=== PATIENT | female | born 1945 | race Caucasian/White ===

== ENCOUNTER 2021-10-25 17:48 | Inpatient (IN) | payer MEDICAID, MEDICARE, OTHER ==
[~2021-10-25] VITALS: Ht 154.9 cm; Wt 99.8 kg
[2021-10-25 19:21] LABS: Basophils # (auto) 0 10 ^3/uL (0-0.2); Basophils % (auto) 0.5 % (0.0-2.0); Eosinophils # (auto) 0.1 10 ^3/uL (0-0.8); Eosinophils % (auto) 1.8 % (0.0-7.0); Hematocrit 40.9 % (36.0-46.0); Hemoglobin 13.9 g/dL (12.2-16.2); Lymphocytes # (auto) 1.5 10 ^3/uL (0.4-5.4); Lymphocytes % (auto) 20.7 % (10.0-50.0); Mean Corpuscular Hemoglobin 28.6 pg (28.0-32.0); Mean Corpuscular Hgb Conc. 33.9 g/dL (32.0-36.0); Mean Corpuscular Volume 84.2 fL (80.0-100.0); Monocytes # (auto) 0.5 10 ^3/uL (0-1.3); Monocytes % (auto) 6.3 % (0.0-12.0); Neutrophils # (auto) 5.1 10 ^3/uL (1.6-8.6); Neutrophils % (auto) 70.7 % (37.0-80.0); Nucleated Red Blood Cells % 0.1 %; Red Blood Cells 4.85 10^6/uL (4.0-5.20); Red Cell Distribution Width 13.4 % (11.8-14.3); White Blood Cell 7.2 10^3/uL (4.4-10.8)
[2021-10-25 19:30] LABS: Albumin 3.6 g/dL (3.4-5.0); Calcium 9.5 mg/dL (8.5-10.1); Potassium 3.6 mmol/L (3.5-5.1)
[2021-10-25 19:35] LABS: Bilirubin, Total 0.7 mg/dL (0.2-1.0); Total Protein 7.3 g/dL (6.4-8.2)
[2021-10-25 19:42] LABS: Urine Bacteria FEW /hpf (None Seen); Urine Blood Negative /uL (Negative); Urine Mucus FEW (None Seen); Urine Specific Gravity 1.008 (1.001-1.035); Urine WBC 20 /hpf (0 - 5)
[2021-10-25] MEDS ORDERED: ONDANSETRON HCL 4 MG/2 ML VIAL IV ONE (19:45)
[2021-10-25] MEDS ORDERED: KETOROLAC TROMETH 30 MG/ML 1ML VIAL IV ONE (19:45)
[2021-10-25] MEDS ORDERED: SODIUM CHLORIDE 0.9% 1,000 ML IVB ONE (19:45)
[2021-10-25] MEDS ORDERED: levoFLOXacin 500MG 100 ML IV ONE (20:00)
[2021-10-25] MEDS ORDERED: cloNIDine HCL 0.1 MG TAB PO ONE (22:00)
[2021-10-26] MEDS ORDERED: ACETAMINOPHEN 325 MG TAB PO PRN (02:00)
[2021-10-26] MEDS ORDERED: ONDANSETRON HCL 4 MG/2 ML VIAL IV PRN (02:00)
[2021-10-26] MEDS ORDERED: DOCUSATE SOD 100 MG CAP PO PRN (02:00)
[2021-10-26] MEDS ORDERED: DEXTROSE (50%) 50ML SYRG IV PRN (02:00)
[2021-10-26] MEDS ORDERED: HYDROmorphone HCL 2 MG/ML VL IV PRN (02:00)
[2021-10-26] MEDS ORDERED: SODIUM CHLORIDE 0.9% 1,000 ML IV ONE (02:15)
[2021-10-26] MEDS ORDERED: hydrALAZINE HCL 20 MG/ML VL IV PRN (02:45)
[2021-10-26] MEDS: ACCU-CHEK COMFORT CURVE STRIP VI SCH ×2 (06:29→11:24)
[2021-10-26] MEDS: InsuLIN REG 1unit/0.01ml Soln (100units/ml) SC SCH ×2 (06:31→11:30)
[2021-10-26 07:55] LABS: Protein, Urine 7.3 mg/dL (0.0-11.9)
[2021-10-26 10:30] VITALS: BP 147/77
[2021-10-26] MEDS: HYDROcodone-ACET 5/325MG TAB PO PRN ×2 (11:03→12:22)
[2021-10-26 11:38] LABS: Potassium 3.6 mmol/L (3.5-5.1)
[2021-10-26 11:43] LABS: BUN/Creatinine Ratio 19.5; Calcium 9.2 mg/dL (8.5-10.1)
[2021-10-26] MEDS ORDERED: FUROSEMIDE 20 MG TAB PO SCH (12:00)
[2021-10-26] MEDS ORDERED: amLODIPine BESYLATE 5 MG TAB PO SCH (12:00)
[2021-10-26] MEDS ORDERED: LEVO100T8 PO (12:27)
[2021-10-26] MEDS ORDERED: METF-371 PO (12:27)
[2021-10-26] MEDS ORDERED: PARO10TA93 PO (12:27)
[2021-10-26] MEDS ORDERED: PAR20T PO (12:27)
[2021-10-26] MEDS ORDERED: LOSA-69 PO (12:27)
[2021-10-26] MEDS ORDERED: ATOR20TA50 PO (12:27)
[2021-10-26] MEDS ORDERED: TRAM50TA2 PO (12:27)
[2021-10-26 13:00] VITALS: BP 161/86
[2021-10-26 15:00] VITALS: BP 125/65
[2021-10-26] MEDS ORDERED: AML5T PO (16:01)
[2021-10-26] MEDS ORDERED: LEVO500T31 PO (16:01)
[2021-10-26] MEDS ORDERED: levoFLOXacin 250MG 50 ML IV SCH (20:00)
== END 2021-10-26 18:20 | disposition home or self-care (01) | DRG 690 ==
LOC: ER 17:48 → OVERFLOW 10-26 01:57 → CENTRAL 10-26 09:14
PROVIDERS: ADMIT Internal Medicine; ATTEND Internal Medicine
DX: N39.0 Urinary tract infection, site not specified (principal); N17.9 Acute kidney failure, unspecified; I13.0 Hypertensive heart and chronic kidney disease with heart failure and stage 1 through stage 4 chronic kidney disease, or unspecified chronic kidney disease; I16.1 Hypertensive emergency; Z68.41 Body mass index [BMI] 40.0-44.9, adult; I25.10 Atherosclerotic heart disease of native coronary artery without angina pectoris; E03.9 Hypothyroidism, unspecified; E11.22 Type 2 diabetes mellitus with diabetic chronic kidney disease; E66.01 Morbid (severe) obesity due to excess calories; E78.5 Hyperlipidemia, unspecified; I49.3 Ventricular premature depolarization; E11.65 Type 2 diabetes mellitus with hyperglycemia; I50.9 Heart failure, unspecified; N18.31 Chronic kidney disease, stage 3a; Z90.49 Acquired absence of other specified parts of digestive tract; Z88.0 Allergy status to penicillin; Z20.822 Contact with and (suspected) exposure to COVID-19; Z79.84 Long term (current) use of oral hypoglycemic drugs
CPT/HCPCS: 36415; 74176; 80048; 80053; 81001; 82570; 83036; 84156; 84300; 84484; 85025; 93005; 96365; 96375; 99291; G0378; J1815; J1885; J1956; J2405

== ENCOUNTER 2023-03-17 16:44 | Inpatient (IN) | payer OTHER ==
[~2023-03-17] VITALS: Ht 160 cm; Wt 110.8 kg
[~2023-03-17 16:44] MED LIST: AML5T PO; ATOR20TA50 PO; LEVO100T8 PO; LEVO500T31 PO; LOSA50TA46 PO; METF-371 PO; PAR20T PO; PARO10TA93 PO; TRAM50TA2 PO
[2023-03-17 18:11] VITALS: BP 145/97; PULSE 99; RESP 16; TEMP 97.7; O2SAT 98
[2023-03-17] MEDS ORDERED: AMIODARONE 450mg/250ml AE 250 ML IV SCH (18:30)
[2023-03-17 19:00] VITALS: BP 132/90; PULSE 97; RESP 15; O2SAT 98
[2023-03-17] MEDS ORDERED: hydrALAZINE HCL 10 MG TAB PO PRN (19:15)
[2023-03-17] MEDS ORDERED: MORPHINE SULFATE INJ 2 MG/ml SYRG IV PRN (19:15)
[2023-03-17] MEDS ORDERED: ONDANSETRON HCL 4 MG/2 ML VIAL IV PRN (19:15)
[2023-03-17] MEDS ORDERED: NITROGLYCERIN 0.4 MG SL TAB SL PRN (19:15)
[2023-03-17] MEDS ORDERED: DEXTROSE (50%) 50ML SYRG IV PRN (19:15)
[2023-03-17] MEDS ORDERED: ACETAMINOPHEN 325 MG TAB PO PRN (19:15)
[2023-03-17] MEDS ORDERED: HYDROcodone-ACET 5/325MG TAB PO PRN (19:15)
[2023-03-17 20:00] VITALS: BP 122/98; PULSE 102; PULSE 109; RESP 18; RESP 19; TEMP 98.6; O2SAT 92
[2023-03-17 21:00] VITALS: PULSE 95; RESP 14; O2SAT 95
[2023-03-17 22:00] VITALS: BP 126/106; PULSE 96; RESP 13; O2SAT 98
[2023-03-17] MEDS: ENOXAPARIN SOD 100 MG/1 ML SYRINGE SC SCH (22:19)
[2023-03-17] MEDS: cefTRIAXone 1GM/50ML D5W 50 ML IV SCH (22:20)
[2023-03-17] MEDS: FUROSEMIDE 40 MG/4 ML VIAL IV SCH (22:20)
[2023-03-17 23:00] VITALS: PULSE 87; RESP 16; O2SAT 94
[2023-03-17] MEDS: InsuLIN REG 1unit/0.01ml Soln (100units/ml) SC SCH (23:50)
[2023-03-17] MEDS: ACCU-CHEK COMFORT CURVE STRIP VI SCH (23:50)
[2023-03-18] VITALS (26 sets, daily range): BP systolic 113–164; BP diastolic 58–119; PULSE 81–130; RESP 11–21; TEMP 97.9–98.6; O2SAT 89–97
[2023-03-18] MEDS: FUROSEMIDE 40 MG/4 ML VIAL IV SCH ×3 (06:00→17:46)
[2023-03-18] MEDS: InsuLIN REG 1unit/0.01ml Soln (100units/ml) SC SCH ×4 (07:00→23:35)
[2023-03-18] MEDS: ACCU-CHEK COMFORT CURVE STRIP VI SCH ×4 (07:00→22:00)
[2023-03-18 07:04] LABS: Basophils # (auto) 0 10 ^3/uL (0-0.2); Basophils % (auto) 0.6 % (0.0-2.0); Eosinophils # (auto) 0.1 10 ^3/uL (0-0.8); Eosinophils % (auto) 2.5 % (0.0-7.0); Hematocrit 40.2 % (36.0-46.0); Lymphocytes # (auto) 1.2 10 ^3/uL (0.4-5.4); Lymphocytes % (auto) 20.5 % (10.0-50.0); Mean Corpuscular Hemoglobin 28.2 pg (28.0-32.0); Mean Corpuscular Hgb Conc. 32.4 g/dL (32.0-36.0); Mean Corpuscular Volume 87.2 fL (80.0-100.0); Monocytes # (auto) 0.6 10 ^3/uL (0-1.3); Monocytes % (auto) 9.7 % (0.0-12.0); Neutrophils # (auto) 3.9 10 ^3/uL (1.6-8.6); Neutrophils % (auto) 66.7 % (37.0-80.0); Nucleated Red Blood Cells % 0.1 %; Red Cell Distribution Width 14.5 % (11.8-14.3); White Blood Cell 5.9 10^3/uL (4.4-10.8)
[2023-03-18] MEDS: ENOXAPARIN SOD 100 MG/1 ML SYRINGE SC SCH ×2 (07:54→18:14)
[2023-03-18] MEDS: cefTRIAXone 1GM/50ML D5W 50 ML IV SCH (08:38)
[2023-03-18 08:39] LABS: Calcium 9.8 mg/dL (8.5-10.1); Chloride 101 mmol/L (98-107); Potassium 3.8 mmol/L (3.5-5.1); Sodium 138 mmol/L (136-145)
[2023-03-18 08:45] LABS: Glucose 124 mg/dL (74-106)
[2023-03-18 08:46] LABS: BUN/Creatinine Ratio 13.9 (10.0-20.0); Blood Urea Nitrogen 22 mg/dL (9-23)
[2023-03-18] MEDS ORDERED: AMIODARONE 450mg/250ml AE 250 ML IV ONE (09:14)
[2023-03-18] MEDS: AMIODARONE 450mg/250ml AE 250 ML IV SCH ×2 (09:27→23:42)
[2023-03-18] MEDS: POTASSIUM CHL 10 Meq TABLET PO SCH (23:33)
[2023-03-19] VITALS (14 sets, daily range): BP systolic 131–150; BP diastolic 55–102; PULSE 76–123; RESP 10–24; TEMP 97.7–98.2; O2SAT 92–98
[2023-03-19 05:01] LABS: Chloride 101 mmol/L (98-107); Potassium 3.5 mmol/L (3.5-5.1); Sodium 139 mmol/L (136-145)
[2023-03-19 05:02] LABS: Anion Gap 5.3 (5-15); Calcium 9.8 mg/dL (8.7-10.4); Carbon Dioxide 32.7 mmol/L (20-30)
[2023-03-19 05:04] LABS: INR 1.28 (0.9-1.15); Partial Thromboplastin Time 43.5 SEC (24.5-34.5); Prothrombin Time 13.2 sec (9.3-11.8)
[2023-03-19 05:07] LABS: Blood Urea Nitrogen 21 mg/dL (9-23); Glucose 133 mg/dL (74-106)
[2023-03-19] MEDS: FUROSEMIDE 40 MG/4 ML VIAL IV SCH (06:00)
[2023-03-19] MEDS: ENOXAPARIN SOD 100 MG/1 ML SYRINGE SC SCH ×2 (06:32→18:45)
[2023-03-19] MEDS: ACCU-CHEK COMFORT CURVE STRIP VI SCH ×4 (07:00→22:35)
[2023-03-19] MEDS: InsuLIN REG 1unit/0.01ml Soln (100units/ml) SC SCH ×4 (07:00→22:33)
[2023-03-19] MEDS: POTASSIUM CHL 10 Meq TABLET PO SCH ×2 (09:21→22:25)
[2023-03-19] MEDS: cefTRIAXone 1GM/50ML D5W 50 ML IV SCH (09:21)
[2023-03-19] MEDS: AMIODARONE 450mg/250ml AE 250 ML IV SCH (21:15)
[2023-03-19 22:33] LABS: Urine Bacteria NONE SEEN /hpf (None Seen); Urine Blood Negative /uL (Negative); Urine Clarity Clear (Clear); Urine Color Yellow (Yellow); Urine Protein, UAD 1+ (Negative); Urine Urobilinogen Normal (Negative); Urine WBC 36 /hpf (0 - 5)
[2023-03-20 05:30] VITALS: BP 148/83; PULSE 140; RESP 18; TEMP 97.7; O2SAT 100
[2023-03-20] MEDS: ENOXAPARIN SOD 100 MG/1 ML SYRINGE SC SCH (06:50)
[2023-03-20 06:57] LABS: Basophils # (auto) 0 10 ^3/uL (0-0.2); Basophils % (auto) 0.5 % (0.0-2.0); Eosinophils # (auto) 0.1 10 ^3/uL (0-0.8); Eosinophils % (auto) 2.2 % (0.0-7.0); Hematocrit 43.2 % (36.0-46.0); Hemoglobin 13.9 g/dL (12.2-16.2); Lymphocytes # (auto) 1.5 10 ^3/uL (0.4-5.4); Lymphocytes % (auto) 22.5 % (10.0-50.0); Mean Corpuscular Hemoglobin 28.4 pg (28.0-32.0); Mean Corpuscular Hgb Conc. 32.1 g/dL (32.0-36.0); Mean Corpuscular Volume 88.4 fL (80.0-100.0); Monocytes # (auto) 0.6 10 ^3/uL (0-1.3); Monocytes % (auto) 8.8 % (0.0-12.0); Neutrophils # (auto) 4.3 10 ^3/uL (1.6-8.6); Nucleated Red Blood Cells % 0.2 %; Red Blood Cells 4.89 10^6/uL (4.0-5.20); Red Cell Distribution Width 15.1 % (11.8-14.3); White Blood Cell 6.4 10^3/uL (4.4-10.8)
[2023-03-20 07:00] LABS: INR 1.19 (0.9-1.15); Partial Thromboplastin Time 39.8 SEC (24.5-34.5); Prothrombin Time 12.4 sec (9.3-11.8)
[2023-03-20] MEDS: InsuLIN REG 1unit/0.01ml Soln (100units/ml) SC SCH ×2 (07:00→11:30)
[2023-03-20 07:02] LABS: Anion Gap 7.3 (5-15); Carbon Dioxide 30.7 mmol/L (20-30); Chloride 101 mmol/L (98-107); Potassium 3.8 mmol/L (3.5-5.1); Sodium 139 mmol/L (136-145)
[2023-03-20 07:04] LABS: Calcium 9.8 mg/dL (8.7-10.4)
[2023-03-20 07:08] LABS: BUN/Creatinine Ratio 12.3 (10.0-20.0); Blood Urea Nitrogen 21 mg/dL (9-23); Glucose 161 mg/dL (74-106)
[2023-03-20] MEDS: ACCU-CHEK COMFORT CURVE STRIP VI SCH ×2 (07:22→11:59)
[2023-03-20 08:00] VITALS: PULSE 106; RESP 15; O2SAT 96
[2023-03-20 08:37] VITALS: BP 141/83; PULSE 116; RESP 16; TEMP 98.1; O2SAT 96
[2023-03-20] MEDS ORDERED: diphenhdrAMINE HCL 50 MG/1 ML VL IV ONE (08:45)
[2023-03-20] MEDS ORDERED: fentaNYL CITRATE 100 MCG/2 ML VL IV ONE (08:45)
[2023-03-20] MEDS ORDERED: LIDOCAINE VISCOUS 2% 15ML UD PO ONE (08:45)
[2023-03-20] MEDS ORDERED: MIDAZOLAM HCL 2MG/2ML 2ml VIAL (1mg/ml) IV ONE (08:45)
[2023-03-20] MEDS: AMIODARONE 450mg/250ml AE 250 ML IV SCH (08:54)
[2023-03-20] MEDS ORDERED: MIDAZOLAM HCL 2MG/2ML 2ml VIAL (1mg/ml) ONE (09:05)
[2023-03-20] MEDS ORDERED: FUROSEMIDE 40 MG TAB PO SCH (10:00)
[2023-03-20] MEDS: POTASSIUM CHL 10 Meq TABLET PO SCH (10:00)
[2023-03-20] MEDS: cefTRIAXone 1GM/50ML D5W 50 ML IV SCH (12:07)
[2023-03-20 13:00] VITALS: BP 149/81; PULSE 62; RESP 18; TEMP 97.6; O2SAT 98
[2023-03-20] MEDS ORDERED: METO25TA36 PO (15:06)
[2023-03-20] MEDS ORDERED: AMIO200T33 PO (15:06)
[2023-03-20] MEDS ORDERED: RIV15T PO (15:06)
[2023-03-20] MEDS ORDERED: SACU1TAB PO (15:06)
[2023-03-20 16:37] VITALS: BP 141/77; PULSE 74; RESP 19; TEMP 97.6; O2SAT 98
[2023-03-21] MEDS ORDERED: POTASSIUM CHL 10 Meq TABLET PO SCH (10:00)
== END 2023-03-20 16:52 | disposition home or self-care (01) | DRG 291 ==
LOC: DOU IN ICU 17:25 → UNDOADMIN 17:25 → DOU IN ICU 19:16 → TELE-WESTW 03-19 10:22
PROVIDERS: ADMIT Nurse Practitioner Family; ATTEND Hospitalist
PROC: B246ZZ4 Ultrasonography of Right and Left Heart, Transesophageal (ICD-10-PCS; principal; 2023-03-20)
DX: I13.0 Hypertensive heart and chronic kidney disease with heart failure and stage 1 through stage 4 chronic kidney disease, or unspecified chronic kidney disease (principal); I50.21 Acute systolic (congestive) heart failure; N39.0 Urinary tract infection, site not specified; Z68.41 Body mass index [BMI] 40.0-44.9, adult; I48.0 Paroxysmal atrial fibrillation; N18.9 Chronic kidney disease, unspecified; E66.9 Obesity, unspecified; E11.22 Type 2 diabetes mellitus with diabetic chronic kidney disease; E03.9 Hypothyroidism, unspecified; Z79.01 Long term (current) use of anticoagulants; Z79.899 Other long term (current) drug therapy; Z83.3 Family history of diabetes mellitus; Z88.0 Allergy status to penicillin
CPT/HCPCS: 36415; 80048; 81001; 82962; 84439; 84443; 85025; 85379; 85610; 85730; 86850; 86900; 86901; 87081; 87086; 93005; 93312; 93970; 97163; 99152; G0378; J0696; J1815; J2250

== ENCOUNTER 2024-12-26 14:05 | Inpatient (IN) | payer OTHER ==
[~2024-12-26] VITALS: Ht 154.9 cm; Wt 96.7 kg
[~2024-12-26 14:05] MED LIST changes: +AMIO200T33 PO; -AML5T PO; +AMLO1TAB22 PO; +ATOR40TA52 PO; +HYDR50TA47 PO; -LEVO500T31 PO; -LOSA50TA46 PO; +METO25TA36 PO; +RIV15T PO; +SACU1TAB PO
--- NOTE | 2024-12-26 14:22 | ED.PDOC ---
HPI Comments HPI: Poor Historian. Patient is on Xarelto states compliance with her medications. Patient took all her morning medications including amiodarone this morning. Patient is on amiodarone but no beta-blockers or calcium channel blockers. 79-year-old female sent from a cardiology office for dizziness and atrial fibrillation with RVR. She was in a routine visit today. Patient woke up this morning feeling lightheaded. Patient took her morning medications. Denies any other associated symptoms chest pain or shortness of breath. Initial Vitals BP: 105/51 HR: 132 RR: 13 O2 Sat: 96% Temp: 98.4F Past Medical History: CHF, hyperlipidemia, hypertension, atrial fibrillation, diabetes, thyroid disease, Past Surgical History: Denies Medications: Xarelto, Amiodarone Social History: Denies smoking, ETOH, and drug use. Allergies: NKDA REVIEW OF SYSTEMS: CONSTITUTIONAL: Denies acute: fever, diaphoresis, chills, generalized weakness. HEAD: Denies acute: headache, photophobia Eyes: Denies acute: Double vision, vision loss, eye pain, eye discharge. EARS: Denies acute: tinnitus, hearing loss, ear discharge, ear pain, THROAT: Denies acute: sore throat, swelling, difficulty swallowing , pain with swallowing, change in voice. NECK: Denies acute: neck pain, neck swelling, stiff neck. HEART: Denies acute : chest pain, palpitations, LUNGS: Denies acute: SOB, wheezing, cough, hemoptysis ABDOMEN: Denies acute: abdominal pain, Nausea, Vomiting, diarrhea, melena , hematemesis, hematochezia SKIN: Denies acute: rash, redness, lesions, itchiness. EXTREMITIES: Denies acute: calf pain, numbness, tingling, weakness, denies pain in extremity. Denies acute: Low back pain. Neuro: Denies acute: focal neurological deficit, motor or sensory focal neurological deficit, tremors, seizure like activity, confusion, change in mental status, loss of bowel or bladder function, cauda equina like symptoms. : Denies acute: dysuria, hematuria, flank pain, increase in urinary frequency. PSYCH: Denies acute: hallucination, suicidal ideation, homicidal ideation. FEMALE: Denies acute: abnormal vaginal bleeding, foul odor, unusual discharge. PHYSICAL EXAM: General: ----mild----acute distress, awake and alert. Head: normocephalic, atraumatic. Neck: supple, trachea is midline, no swelling. Throat: Normal phonation. Eyes:, no erythema, no purulent discharge, no proptosis, no icterus. Heart: regular irregular rate and rhythm consistent with atrial fibrillation with RVR. no significant murmur appreciated. Lungs: no apparent respiratory distress, Able to speak in full sentences. No wheezing, no rhonchi, no crackles. No stridors Clear to auscultation bilaterally. Abdomen: non tender to palpation, non distended, soft, no guarding, no rebound, + bowel sounds. Obese Neuro: Awake, Alert, oriented to name, self, situation, follows commands GCS=15. Speech is normal. Skin: no petechia, no purpura, no cyanosis, non-pale, not jaundice. Lower extremities: --no - Pitting edema no deformity, no focal swelling, no calf TTP. Makes eye contact. moves all four extremities. Face: no apparent facial droop. Ambulating in the ED independently. ED COURSE: DISCLAIMER: This medical document was created using an electronic medical record system with voice recognition software and computerized dictation system. Although this document has been carefully reviewed, there might still be some phonetic and typographical errors. Occasional wrong-word or "sound-alike" substitutions may have occurred due to the inherent limitations of voice recognition software. These areas are purely typographical due to imperfections of the software programs and do not reflect any compromise in the patient's medical care. Please read the chart carefully and recognize, using context, where these substitutions have occurred. Time Seen by MD: 14:18 Reviewed Notes: Medications, Allergies Allergies: Coded Allergies: Penicillins (Verified Allergy, Severe, 10/26/21) Home Meds Active Scripts Sacubitril-Valsartan (Entresto 24-26 mg) 1 Tab Tab, 1 TAB PO BID, #90 TAB Prov:STEVE JENKINS MD 03/20/23 Metoprolol Succinate (Toprol Xl) 25 Mg Tab, 1 TAB PO DAILY, #90 TAB 1 Refill Prov:GANAPAVARAPU,STEVE MD 03/20/23 Amiodarone Hcl (Amiodarone Hcl) 200 Mg Tab, 1 TAB PO DAILY, #30 TAB Prov:STEVE JENKINS MD 03/20/23 Rivaroxaban (Xarelto Tablet) 15 Mg Tb, 15 MG PO DAILY, #60 TAB Prov:STEVE JENKINS MD 03/20/23 Reported Medications Paroxetine (PAXIL TABLET) 20 Mg Tb, 1 TAB PO DAILY, #90 TAB 3 Refills 10/26/21 Metformin Hydrochloride (Metformin Hcl) 850 Mg Tab, 1 TAB PO BID 10/26/21 Atorvastatin Calcium (ATORVASTATIN CALCIUM) 20 Mg Tab, 1 TAB PO DAILYPRN 10/26/21 Paroxetine Hydrochloride (Paroxetine Hydrochloride) 10 Mg Tab, TAB PO 10/26/21 Levothyroxine Sodium (Levothyroxine Sodium) 100 Mcg Tab, 1 TAB PO DAILYPRN 10/26/21 Tramadol Hcl (Tramadol Hcl) 50 Mg Tab, 1 TAB PO BIDPRN PRN for PAIN SCALE 1 THRU 6 10/26/21 Information Source: Patient Past Medical History PAST MEDICAL HISTORY: CAD, CKF, DM, HTN, Thyroid Surgical History: Cholecystectomy WATER POLLUTION SCIENTIST History: No Pertinent WATER POLLUTION SCIENTIST History Family History Family History: Family hx of DM Social History Smoker: Non-Smoker Alcohol: Occasionally Drugs: Denies Drug Use Lives In: Home Was a procedure done? Was a procedure done?: No CP Differential Dx Differential Diagnosis: A-fib, A-Flutter, Angina, Anxiety / Panic Attack, Digoxin Toxicity, Electrolyte Disorder, Heart Failure, Hyperthyroidism, Hyperventilation, Hypoxia, MAT, NE, PAC's, Pacemaker Malfunction, PSVT, Pulmonary Embolus, PVC's, Renal Failure, Sinus Tachycardia, Torsades De Pointes, Ventricular Dysrhythmia, V-Fib, V-Tach, WPW X-Ray, Labs, Meds, VS Vital Signs Date Time Temp Pulse Resp B/P (MAP) Pulse Ox O2 Delivery O2 Flow Rate FiO2 12/26/24 19:16 98.3 114 19 126/53 (77) 98 98.3 12/26/24 19:16 114 98 Room Air* 0 21 12/26/24 16:33 98.3 60 18 120/95 (103) 98 98.3 12/26/24 14:13 136 12/26/24 14:06 98.4 132 13 105/51 (69) 96 98.4 Lab Test 12/26/24 19:27 12/26/24 17:53 12/26/24 15:34 12/26/24 15:00 Range/Units POC Glucose 129 H 70-106 mg/dl Troponin I High Sensitivity 36 *H 35 *H </=34 ng/L Urine Color Yellow Yellow Urine Clarity Turbid H Clear Urine pH 5.5 5.0-9.0 Urine Specific [place] 1.020 1.001-1.035 Urine Protein 1+ H Negative Urine Ketones Negative Negative Urine Blood Negative Negative /uL Urine Nitrite Negative Negative Urine Bilirubin Negative Negative Urine Urobilinogen Normal Negative mg/dL Urine Leukocyte Esterase 3+ Negative /uL Urine RBC 7 0 - 4 /hpf Urine Microscopic WBC 18 H 0-5 /HPF Urine Squamous Epithelial Cells Few <5 /hpf Urine Bacteria Few H None Seen /hpf Urine Mucus Few None Seen Urine Glucose Normal Normal mg/dL Test 12/26/24 14:41 12/26/24 14:28 Range/Units White Blood Count 7.6 4.4-10.8 10^3/uL Red Blood Count 5.73 H 4.0-5.20 10^6/uL Hemoglobin 15.8 12.2-16.2 g/dL Hematocrit 47.9 H 36.0-46.0 % Mean Corpuscular Volume 83.7 80.0-100.0 fL Mean Corpuscular Hemoglobin 27.6 L 28.0-32.0 pg Mean Corpuscular Hemoglobin Concent 33.0 32.0-36.0 g/dL Red Cell Distribution Width 14.4 H 11.8-14.3 % Platelet Count 256 140-450 10^3/uL Mean Platelet Volume 9.8 6.9-10.8 fL Neutrophils (%) (Auto) 66.5 37.0-80.0 % Lymphocytes (%) (Auto) 23.5 10.0-50.0 % Monocytes (%) (Auto) 7.5 0.0-12.0 % Eosinophils (%) (Auto) 1.7 0.0-7.0 % Basophils (%) (Auto) 0.8 0.0-2.0 % Neutrophils # (Auto) 5.0 1.6-8.6 10 ^3/uL Lymphocytes # (Auto) 1.8 0.4-5.4 10 ^3/uL Monocytes # (Auto) 0.6 0-1.3 10 ^3/uL Eosinophils # (Auto) 0.1 0-0.8 10 ^3/uL Basophils # (Auto) 0.1 0-0.2 10 ^3/uL Nucleated Red Blood Cells 0.1 % Sodium Level 139 136-145 mmol/L Potassium Level 4.0 3.5-5.1 mmol/L Chloride Level 103 98-107 mmol/L Carbon Dioxide Level 25 20-31 mmol/L Anion Gap 11 5-15 Blood Urea Nitrogen 31 H 9-23 mg/dL Creatinine 1.61 H 0.550-1.02 mg/dL Glomerular Filtration Rate Calc 33 >90 mL/min BUN/Creatinine Ratio 19.3 10.0-20.0 Serum Glucose 137 H 74-106 mg/dL Lactic Acid Level 1.3 0.4-2.0 mmol/L Calcium Level 10.1 8.7-10.4 mg/dL Magnesium Level 1.9 1.6-2.6 mg/dL Total Bilirubin 0.8 0.2-1.0 mg/dL Aspartate Amino Transferase (AST) 23 <34 U/L Alanine Aminotransferase (ALT) 19 7-40 U/L Alkaline Phosphatase 76 46-116 U/L Troponin I High Sensitivity 33 </=34 ng/L B-Type Natriuretic Peptide 291.29 0-100 pg/mL Total Protein 7.6 5.7-8.2 g/dL Albumin 4.7 3.2-4.8 g/dL POC Glucose 138 H 70-106 mg/dl Current Medications Medications (Trade) Dose Ordered Sig/Edwin Route Start Time Stop Time Status Last Admin Sodium Chloride 500 ml @ 500 mls/hr Q1H ONCE IV 12/26/24 14:30 12/26/24 15:29 DC 12/26/24 16:30 Amiodarone HCl (Cordarone Tablet) 200 mg ONCE ONCE PO 12/26/24 14:30 12/26/24 14:31 DC 12/26/24 14:[address] [address] Ph: [phone] DIAGNOSTIC IMAGING Diagnostic Imaging Report : [id number] Signed PATIENT: SRIKANTH PIERCE ACCT: [id number] UNIT: [id number] : 1945 LOC: ER ROOM / BED: / AGE / SEX: 79 / F ADM STATUS: REG ER SERVICE 25 ORDERING PHYSICIAN: DANIELLE PARMAR DO PROCEDURE(s): CXRP - CHEST PORTABLE REASON: dizzy, afib ORDER NUMBER(s): [id number], ACCESSION NUMBER(s): [id number] XY CHEST PORTABLE, HISTORY: dizzy, afib COMPARISON: None None TECHNICAL DATA: 1 view of the chest was obtained. FINDINGS: Lines and tubes: None Cardiomediastinal silhouette: normal Pulmonary vasculature: normal Lung expansion: normal Lung airspace: normal Lung interstitium: normal Pleura: normal Pneumothorax: no Bones: Unremarkable Other: no IMPRESSION: No acute intrathoracic abnormality. ATED BY: TINO ZURITA MD DICTATED DATE/TIME: 12/26/241446 SIGNED BY: TINO ZURITA MD SIGNED DATE/TIME: 12/26/241446 CC: Time of 1ST Reevaluation: 19:35 (The case was discussed with the admitting team (HPI, physical exam, labs and diagnostic tests that were available at the time of disposition, ED course, treatment plan) on the phone. They agreed to admit the patient to their service and assume care of this patient from this point forward. Nurse practitioner Mariluz) Reevaluation 1ST: Patient Education/Counseling: Diagnosis, Treatment Family Education/Counseling: Other Comments Patient presented with the above HPI.--dizziness/atrial fibrillation with RVR----workup was initiated. patient was found with the above mentioned diagno sis. the following medications were ordered: please refer to order lists of meds and tests obtained by myself Dr. Parmar. Patient ED course and VS have been stabilized. Patient has been reassessed in the ED and remained in a stable condition. Pertinent incidental findings were discussed with the patient and/or family. Patient/family voices understanding and is agreeable with plan. Patient has been observed in the ED adequate length of time to insure improvement/stability. Escalation of care considered: Consideration of escalation to observation or admission There has been a delay in patient's care intervention and increased length of stay in the ER due to lack of bed availability. Patient was started on amiodarone bolus and a drip. She was was given oral amiodarone while waiting to be placed on a monitor for IV amiodarone. Patient was ADMITTED to the medicine team for further evaluation and treatment of their presentation. All the reports of any imaging studies that were ordered by myself were reviewed by myself. Departure 1 Departure Time of Disposition: 14:25 Impression: Primary Impression: Atrial fibrillation with RVR Additional Impression: UTI (urinary tract infection) Disposition: ADMITTED INPATIENT Admit to: Tele Condition: Guarded Discharged With: Self Critical Care Note Critical Care Time?: Yes (55 min-critical care time only) Heart Score Heart Score: Heart Score Response (Comments) Value History Moderate Suspicious 1 EKG Repolarization Disturb 1 Age >65 2 Risk Factors >3 or Hx ASHD 2 Troponin 1-2 x's Normal limit 1 Total 7 I personally scribed for DANIELLE PARMAR DO ([email or web address]) on 12/26/24 at 14:28. Electronically submitted by Alec Christopher ([email or web address]). I personally scribed for DANIELLE PARMAR DO ([email or web address]) on 12/26/24 at 16:50. Electronically submitted by Alec Christopher ([email or web address]). I personally scribed for DANIELLE PARMAR DO ([email or web address]) on 12/26/24 at 17:06. Electronically submitted by Alec Christopher ([email or web address]). DANIELLE PARMAR DO Dec 26, 2024 14:22
--- NOTE | 2024-12-26 14:27 | ECG ---
[facility] Test Date: 2024-12-26 Test Time: 14:13:34 Pat Name: SRIKANTH PIERCE Department: ER Room: 0249T Gender: F Supervisor [employer]: CANDIE : 1945 Requested By: DANIELLE PARMAR Order Number: [id number] Reading MD: Avery Carlisle Measurements Intervals [place] Rate: 136 P: 0 CO: 0 QRS: 25 QRSD: 97 T: 204 QT: 301 QTc: 453 Interpretive Statements Atrial fibrillation Low voltage, precordial leads Repolarization abnormality, prob rate related Electronically Signed On 12-27-2024 21:18:31 PDT by Avery Carlisle Please click the below link to view image of tracing.
[2024-12-26] MEDS: AMIODARONE HCL 200 MG TAB PO ONE (14:35)
--- NOTE | 2024-12-26 14:49 | DVH ---
XY CHEST PORTABLE, HISTORY: dizzy, afib COMPARISON: None None TECHNICAL DATA: 1 view of the chest was obtained. FINDINGS: Lines and tubes: None Cardiomediastinal silhouette: normal Pulmonary vasculature: normal Lung expansion: normal Lung airspace: normal Lung interstitium: normal Pleura: normal Pneumothorax: no Bones: Unremarkable Other: no IMPRESSION: No acute intrathoracic abnormality.
[2024-12-26 14:51] LABS: Basophils # (auto) 0.1 10 ^3/uL (0-0.2); Basophils % (auto) 0.8 % (0.0-2.0); Eosinophils # (auto) 0.1 10 ^3/uL (0-0.8); Eosinophils % (auto) 1.7 % (0.0-7.0); Hematocrit 47.9 % (36.0-46.0); Hemoglobin 15.8 g/dL (12.2-16.2); Lymphocytes # (auto) 1.8 10 ^3/uL (0.4-5.4); Lymphocytes % (auto) 23.5 % (10.0-50.0); Mean Corpuscular Hemoglobin 27.6 pg (28.0-32.0); Mean Corpuscular Volume 83.7 fL (80.0-100.0); Monocytes # (auto) 0.6 10 ^3/uL (0-1.3); Monocytes % (auto) 7.5 % (0.0-12.0); Neutrophils % (auto) 66.5 % (37.0-80.0); Nucleated Red Blood Cells % 0.1 %; Platelet Count (auto) 256 10^3/uL (140-450); Red Blood Cells 5.73 10^6/uL (4.0-5.20); Red Cell Distribution Width 14.4 % (11.8-14.3); White Blood Cell 7.6 10^3/uL (4.4-10.8)
[2024-12-26 15:09] LABS: Alanine Aminotransferase 19 U/L (7-40); Albumin 4.7 g/dL (3.2-4.8); Alkaline Phosphatase 76 U/L (46-116); Anion Gap 11 (5-15); Aspartate Aminotransferase 23 U/L (<34); BUN/Creatinine Ratio 19.3 (10.0-20.0); Blood Urea Nitrogen 31 mg/dL (9-23); Calcium 10.1 mg/dL (8.7-10.4); Carbon Dioxide 25 mmol/L (20-31); Chloride 103 mmol/L (98-107); Glucose 137 mg/dL (74-106); Magnesium 1.9 mg/dL (1.6-2.6); Sodium 139 mmol/L (136-145); Total Protein 7.6 g/dL (5.7-8.2)
[2024-12-26 15:10] LABS: Bilirubin, Total 0.8 mg/dL (0.2-1.0)
[2024-12-26 15:47] LABS: Urine Bacteria FEW /hpf (None Seen); Urine Blood Negative /uL (Negative); Urine Clarity Turbid (Clear); Urine Color Yellow (Yellow); Urine Mucus FEW (None Seen); Urine Protein, UAD 1+ (Negative); Urine Squamous Epithelial Cell FEW /hpf (<5); Urine Urobilinogen Normal (Negative); Urine WBC 18 /HPF (0-5); Urine pH 5.5 (5.0-9.0)
[2024-12-26] MEDS: SODIUM CHLORIDE 0.9% 500 ML IV ONE (16:30)
[2024-12-26 19:16] VITALS: PULSE 114; O2SAT 98
[2024-12-26] MEDS: AMIODARONE BOLUS KIT 100 ML IV ONE (19:36)
[2024-12-26] MEDS ORDERED: ONDANSETRON HCL 4 MG/2 ML VIAL IV PRN (19:45)
[2024-12-26] MEDS ORDERED: NITROGLYCERIN 0.4 MG SL TAB SL PRN (19:45)
[2024-12-26] MEDS ORDERED: MORPHINE SULFATE INJ 2 MG/ml SYRG IV PRN (19:45)
[2024-12-26] MEDS: AMIODARONE 360mg/200mL PREMIX 200 ML IV ONE (19:47)
[2024-12-26] MEDS: cefTRIAXone 1GM/50ML D5W 50 ML IV ONE (20:34)
[2024-12-26] MEDS: FAMOTIDINE 20 MG TAB PO SCH (21:42)
[2024-12-26 22:42] VITALS: PULSE 63; RESP 17; O2SAT 98
[2024-12-26] MEDS: SODIUM CHLORIDE 0.9% 250 ML IV ONE (23:40)
[2024-12-27] VITALS (9 sets, daily range): BP systolic 102–141; BP diastolic 56–100; PULSE 58–112; RESP 17–20; TEMP 96.2–97.6; O2SAT 90–98
--- NOTE | 2024-12-27 01:59 | DVHHP2 ---
Admitting Diagnosis: Atrial fibrillation with RVR, UTI History of Present Illness History Source: Patient Exam Limitations: No limitations HPI Mrs. Radha Forte is a 79-year-old female with a history of CHF, Afib , HtN, HLD, DM, Thyroid disease, Chronic renal failure who was sent from cardiology office for dizziness and atrial fibrillation with RVR. Patient reports she was in a routine visit today and was told by the Cardiology office SUGAR MIXER to come to the hospital for atrial fibrillation with RVR on EKG results in office. Patient reports she woke up this morning feeling lightheaded. Patient endorses she took her morning medications. Denies any other associated symptoms chest pain or shortness of breath. Patient admitted for further evaluation and treatment. Home Meds Active Scripts Sacubitril-Valsartan (Entresto 24-26 mg) 1 Tab Tab, 1 TAB PO BID, #90 TAB Prov:STEVE JENKINS MD 03/20/23 Metoprolol Succinate (Toprol Xl) 25 Mg Tab, 1 TAB PO DAILY, #90 TAB 1 Refill Prov:STEVE JENKINS MD 03/20/23 Amiodarone Hcl (Amiodarone Hcl) 200 Mg Tab, 1 TAB PO DAILY, #30 TAB Prov:STEVE JENKINS MD 03/20/23 Rivaroxaban (Xarelto Tablet) 15 Mg Tb, 15 MG PO DAILY, #60 TAB Prov:STEVE JENKINS MD 03/20/23 Reported Medications Amlodipine Besylate (Amlodipine Besylate) 5 Mg Tab, 1 TAB PO DAILY for 90 Days, #90 12/27/24 Atorvastatin Calcium (ATORVASTATIN CALCIUM) 40 Mg Tab, 1 TAB PO DAILY for 100 Days, #100 12/27/24 Hydralazine Hcl (Hydralazine Hcl) 50 Mg Tab, 1 TAB PO TID for 30 Days, #90 12/27/24 Paroxetine Hydrochloride (Paroxetine Hydrochloride) 10 Mg Tab, 1.5 TAB PO DAILY for 100 Days, #150 12/27/24 Metformin Hydrochloride (Metformin Hcl) 850 Mg Tab, 1 TAB PO BID 10/26/21 Levothyroxine Sodium (Levothyroxine Sodium) 100 Mcg Tab, 1 TAB PO DAILY for 100 Days, #100 10/26/21 Tramadol Hcl (Tramadol Hcl) 50 Mg Tab, 1 TAB PO BIDPRN PRN for PAIN SCALE 1 THRU 6 10/26/21 Discontinued Reported Medications Paroxetine (PAXIL TABLET) 20 Mg Tb, 1 TAB PO DAILY, #90 TAB 3 Refills 10/26/21 Past Medical History Cardiac: AFIB, CHF, HTN, Hyperlipidemia Pulmonary: No pertinent Hx Central Nervous System: No pertinent Hx GI: No pertinent Hx Hemotology/Oncology: No pertinent Hx Hepatobiliary: No pertinent Hx Psychiatric: No pertinent Hx Musculoskeletal: No pertinent Hx Rheumotologic: No pertinent Hx Infectious Disease: No peritnent Hx ENT: No pertinent Hx Renal/: CKD Endocrine: Hypothyroidism, NIDDM Dermatology: No pertinent Hx Patient Family History: Congenital anomaly G8 MOTHER G8 FATHER, Onset:Unknown Diabetes mellitus Smoker: No Hx (Negative) Alocohol: None Drugs: None Domestic Violence: Neg Review of Systems Constitutional: No symptom reported Ears, Nose, & Throat: No symptom reported Eyes: No symptom reported Pulmonary/Respiratory: No symptom reported Cardiovascular: No symptom reported Gastrointestinal: No symptom reported Genitourinary: No symptom reported Musculoskeletal: No symptom reported Skin: No symptom reported Psychiatric: No symptom reported Endocrine: No symptom reported Hemotologic/Lymphatic: No symptom reported All Other Systems Dizziness, irregular heart rhythm with RVR H&P Exam Vital Signs Vital Signs Date Time Temp Pulse Resp B/P (MAP) Pulse Ox O2 Delivery O2 Flow Rate FiO2 12/27/24 01:00 96.7 64 18 130/100 (110) 98 96.7 12/26/24 22:42 Room Air* 0 21 General Appeara: Well developed, Well nourished, Normal Appearance Head Exam: Normal inspection Neck Exam: Normal inspection, Non-tender, Normal alignment Eye Exam: bilateral eye Normal inspection, bilateral eye PERRL, bilateral eye EOMI Ear Exam: bilateral ear Auricle normal Nasal Exam: Normal inspection Mouth: Normal Inspection Pulmonary/Respiratory: Normal inspection, Normal breath sounds, Chest non- tender, Lungs clear Cardiovascular/Chest: Normal inspection, Tachycardia, Irregularly irregular Peripheral Pulses: 2+ dorsalis pedis (R), 2+ dorsalis pedis (L), 2+ Radial (R), 2+ Radial (L) Abdominal Exam: Normal bowel sounds, Soft Rectal Exam: Deferred Pelvic Exam: Not done Legs: bilateral leg non-tender, bilateral leg normal inspection, bilateral leg normal range of motion 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 Exam: Normal hearing, Normal speech, PERRL Neuro/Mental St: Alert, Oriented Appearance: Appropriate appearance, Appropriate insight Eye contact/ Speech: Cooperative, Good eye contact, Normal speech Thoughts/Psych: Normal thought pattern Skin Exam: Normal inspection, Normal color, Warm/dry Labs/Xrays Labs Test 12/26/24 21:56 12/26/24 19:27 12/26/24 15:00 12/26/24 14:41 Range/Units Troponin I High Sensitivity 35 *H </=34 ng/L POC Glucose 129 H 70-106 mg/dl Urine Color Yellow Yellow Urine Clarity Turbid H Clear Urine pH 5.5 5.0-9.0 Urine Specific [place] 1.020 1.001-1.035 Urine Protein 1+ H Negative Urine Ketones Negative Negative Urine Blood Negative Negative /uL Urine Nitrite Negative Negative Urine Bilirubin Negative Negative Urine Urobilinogen Normal Negative mg/dL Urine Leukocyte Esterase 3+ Negative /uL Urine RBC 7 0 - 4 /hpf Urine Microscopic WBC 18 H 0-5 /HPF Urine Squamous Epithelial Cells Few <5 /hpf Urine Bacteria Few H None Seen /hpf Urine Mucus Few None Seen Urine Glucose Normal Normal mg/dL White Blood Count 7.6 4.4-10.8 10^3/uL Red Blood Count 5.73 H 4.0-5.20 10^6/uL Hemoglobin 15.8 12.2-16.2 g/dL Hematocrit 47.9 H 36.0-46.0 % Mean Corpuscular Volume 83.7 80.0-100.0 fL Mean Corpuscular Hemoglobin 27.6 L 28.0-32.0 pg Mean Corpuscular Hemoglobin Concent 33.0 32.0-36.0 g/dL Red Cell Distribution Width 14.4 H 11.8-14.3 % Platelet Count 256 140-450 10^3/uL Mean Platelet Volume 9.8 6.9-10.8 fL Neutrophils (%) (Auto) 66.5 37.0-80.0 % Lymphocytes (%) (Auto) 23.5 10.0-50.0 % Monocytes (%) (Auto) 7.5 0.0-12.0 % Eosinophils (%) (Auto) 1.7 0.0-7.0 % Basophils (%) (Auto) 0.8 0.0-2.0 % Neutrophils # (Auto) 5.0 1.6-8.6 10 ^3/uL Lymphocytes # (Auto) 1.8 0.4-5.4 10 ^3/uL Monocytes # (Auto) 0.6 0-1.3 10 ^3/uL Eosinophils # (Auto) 0.1 0-0.8 10 ^3/uL Basophils # (Auto) 0.1 0-0.2 10 ^3/uL Nucleated Red Blood Cells 0.1 % Sodium Level 139 136-145 mmol/L Potassium Level 4.0 3.5-5.1 mmol/L Chloride Level 103 98-107 mmol/L Carbon Dioxide Level 25 20-31 mmol/L Anion Gap 11 5-15 Blood Urea Nitrogen 31 H 9-23 mg/dL Creatinine 1.61 H 0.550-1.02 mg/dL Glomerular Filtration Rate Calc 33 >90 mL/min BUN/Creatinine Ratio 19.3 10.0-20.0 Serum Glucose 137 H 74-106 mg/dL Lactic Acid Level 1.3 0.4-2.0 mmol/L Calcium Level 10.1 8.7-10.4 mg/dL Magnesium Level 1.9 1.6-2.6 mg/dL Total Bilirubin 0.8 0.2-1.0 mg/dL Aspartate Amino Transferase (AST) 23 <34 U/L Alanine Aminotransferase (ALT) 19 7-40 U/L Alkaline Phosphatase 76 46-116 U/L B-Type Natriuretic Peptide 291.29 0-100 pg/mL Total Protein 7.6 5.7-8.2 g/dL Albumin 4.7 3.2-4.8 g/dL Assessment/Plan Problem List: (1) Atrial fibrillation with RVR (2) UTI (urinary tract infection) Plan This is a 79 yo female with known history of CHF, atrial fibrillation, hypertension, hyperlipidemia, DM, Thyroid disease, Chronic renal disease who presents from cardiology office for dizziness and rapid irregular rhythm who was found to have 1. Atrial fibrillation with rapid ventricular rhythm 2. Acute urinary tract infection 3. Mildly elevated troponin levels most likely from demand ischemia 4. Chronic CHF 5. Chronic Hypertension 6. DMT2 7. Thyroid disease 8. Chronic kidney disease Plan Admit Telemetry unit Cardiology consultation, follow 2D echo results, serial troponin levels Continue Amiodarone drip per protocol Reconcile and continue home medications as needed continue PO anticoagulation therapy Xarelto Monitor electrolytes replenish as needed Discussed all above with patient who verbalizes agreement and understanding of care plan. All questions were answered. Discussed with supervising MD. Plan discussed with: Patient, Other Code Visit Code Visit Total Time (mins): 45 DANNY KEYS Dec 27, 2024 01:59 ZOIE GOODRICH MD Dec 27, 2024 16:49
[2024-12-27] MEDS: LEVOTHYROXINE SODIUM 100 MCG TAB PO SCH (05:20)
[2024-12-27 06:45] LABS: Potassium 4.2 mmol/L (3.5-5.1); Sodium 143 mmol/L (136-145)
[2024-12-27 06:46] LABS: Anion Gap 11 (5-15); Calcium 9.2 mg/dL (8.7-10.4); Carbon Dioxide 24 mmol/L (20-31)
[2024-12-27 06:52] LABS: BUN/Creatinine Ratio 21.6 (10.0-20.0); Magnesium 1.9 mg/dL (1.6-2.6)
[2024-12-27 06:57] LABS: Chloride 108 mmol/L (98-107)
[2024-12-27 06:58] LABS: Blood Urea Nitrogen 30 mg/dL (9-23); Glucose 129 mg/dL (74-106)
[2024-12-27] MEDS: cefTRIAXone 1GM/50ML D5W 50 ML IV SCH (09:28)
[2024-12-27] MEDS: ATORVASTATIN 20 MG TAB PO SCH (09:28)
[2024-12-27] MEDS: PARoxetine 20 MG TAB PO SCH (09:28)
[2024-12-27] MEDS: RIVAROXABAN 15 MG TAB PO SCH (09:29)
[2024-12-27] MEDS: ACETAMINOPHEN 325 MG TAB PO PRN (16:57)
--- NOTE | 2024-12-27 19:21 | DVHSR ---
APPROVED REPORT EXAM: Two-dimensional and M-mode echocardiogram with Doppler and color Doppler. Blood Pressure: 121/94 mmHg INDICATION afib rvr, dizziness RISK FACTORS Obesity: Height: 5'1, Weight: 214 DIMENSIONS LVDd4.8 (3.8-5.7cm)LA (2D)3.7 (1.9-4.0cm)Aortic Root3.1 (2.0-3.7cm) LVDs3.7 (2.5-4.0cm)LA (MM) (1.9-4.0cm)Aortic Cusp Exc1.5 (1.5-2.0cm) EF (%) 43.0 (55-70%)Rt. Atrium4.9 (1.9-4.0cm)Asc. Aorta3.2 cm IVSd1.5 (0.7-1.1cm)RV (D)4.4 (1.8-2.4cm) PWd1.3 (0.7-1.1cm) Mitral Valve MitralMitral Stenosis E wave0.83m/sMV Mean GR.2mmHg A wave0.01m/sMV Peak GR.44mmHg E/A ratio83.02D MVAcm2 DECEL [id number] 1/2 Tim[place] Aortic Valve Aortic ValveAortic Stenosis V10.86m/Santi Mean GR.5mmHg V21.40m/Santi Peak GR.8mmHg LVOT Diameter2.1 (1.8-2.4cm)Doppler AVA2.13cm2 Pulmonic Valve V20.94m/s Tricuspid Valve TR Velocity2.26m/s [id number] Other Information Quality : Technically LimitedRhythm : Technically limited study due to patient position.body habitus. Conclusion LVEF mildly reduced 40-45%,global hypokinesis, in afib. moderate LVH RV mildly dilated, mildly reduced fucntion RA moderately dilated Left atrium mildly dilated
[2024-12-28] VITALS (8 sets, daily range): BP systolic 120–141; BP diastolic 70–103; PULSE 58–123; RESP 17–20; TEMP 97.4–98.1; O2SAT 94–97
[2024-12-28] MEDS: AMIODARONE BOLUS KIT 100 ML IV ONE (08:31)
[2024-12-28] MEDS: AMIODARONE 360mg/200mL PREMIX 200 ML IV ONE (08:56)
[2024-12-28] MEDS: AMIODARONE 360mg/200mL PREMIX 200 ML IV SCH ×2 (14:43→16:00)
--- NOTE | 2024-12-28 18:23 | DVHINCON2 ---
Date Seen: Dec 28, [address] Moran Reason for Consultation AFib with RVR History of Present Illness The patient is a 79-year-old female with a complex medical history, including atrial fibrillation, congestive heart failure, hypertension, hyperlipidemia, diabetes mellitus, thyroid disease, and chronic kidney disease, who presents to emergency department for evaluation of dizziness in the setting of atrial fibrillation with rapid ventricular response. She was referred by her psychology technician, Dr. Aviles, after reporting a sudden onset of lightheadedness upon waking the previous morning. She had taken her morning medication as prescribed. In the emergency department, she was found to be in atrial fibrillation with RVR and was started on amiodarone drip. On reassessment, the patient remained in atrial fibrillation, but with a now controlled ventricular rate. She reports overall improvement in symptoms and denies chest pain or shortness of breath. The plan is to transition her to oral amiodarone and advised close outpatient follow-up with her psychology technician. The patient is also advised to continue taking Xarelto as prescribed, as well as to remain on GDM T for heart failure. Past Medical History As stated in HPI Past Surgical History Denies Family History: Congenital anomaly G8 MOTHER G8 FATHER, Onset:Unknown Diabetes mellitus Family History Reviewed, non-contributory to the management of this case. Social History The patient lives at home, denies smoking, alcohol or illicit drugs abuse. Allergies: Coded Allergies: Penicillins (Verified Allergy, Severe, 10/26/21) Home Meds Active Scripts Sacubitril-Valsartan (Entresto 24-26 mg) 1 Tab Tab, 1 TAB PO BID, #90 TAB Prov:STEVE JENKINS MD 03/20/23 Metoprolol Succinate (Toprol Xl) 25 Mg Tab, 1 TAB PO DAILY, #90 TAB 1 Refill Prov:STEVE JENKINS MD 03/20/23 Amiodarone Hcl (Amiodarone Hcl) 200 Mg Tab, 1 TAB PO DAILY, #30 TAB Prov:STEVE JENKINS MD 03/20/23 Rivaroxaban (Xarelto Tablet) 15 Mg Tb, 15 MG PO DAILY, #60 TAB Prov:STEVE JENKINS MD 03/20/23 Reported Medications Amlodipine Besylate (Amlodipine Besylate) 5 Mg Tab, 1 TAB PO DAILY for 90 Days, #90 12/27/24 Atorvastatin Calcium (ATORVASTATIN CALCIUM) 40 Mg Tab, 1 TAB PO DAILY for 100 Days, #100 12/27/24 Hydralazine Hcl (Hydralazine Hcl) 50 Mg Tab, 1 TAB PO TID for 30 Days, #90 12/27/24 Paroxetine Hydrochloride (Paroxetine Hydrochloride) 10 Mg Tab, 1.5 TAB PO DAILY for 100 Days, #150 12/27/24 Metformin Hydrochloride (Metformin Hcl) 850 Mg Tab, 1 TAB PO BID 10/26/21 Levothyroxine Sodium (Levothyroxine Sodium) 100 Mcg Tab, 1 TAB PO DAILY for 100 Days, #100 10/26/21 Tramadol Hcl (Tramadol Hcl) 50 Mg Tab, 1 TAB PO BIDPRN PRN for PAIN SCALE 1 THRU 6 10/26/21 Discontinued Reported Medications Paroxetine (PAXIL TABLET) 20 Mg Tb, 1 TAB PO DAILY, #90 TAB 3 Refills 10/26/21 Current Medications Current Medications Medications (Trade) Dose Ordered Sig/Edwin Route PRN Reason Start Time Stop Time Status Last Admin Amiodarone HCl (Cordarone Tablet) 200 mg BID PO 12/29/24 06:00 Review of Systems Constitutional: No symptom reported Ears, Nose, & Throat: No symptom reported Eyes: No symptom reported Neurological: No symptoms reported Pulmonary/Respiratory: No symptom reported Cardiovascular: Positive for dizziness, denies chest pain, palpitation at the time of assessment Gastrointestinal: No symptom reported Genitourinary: No symptom reported Musculoskeletal: No symptom reported Skin: No symptom reported Psychiatric: No symptom reported Endocrine: No symptom reported Hemotologic/Lymphatic: No symptom reported Vital Signs Vital Signs Date Time Temp Pulse Resp B/P (MAP) Pulse Ox O2 Delivery O2 Flow Rate FiO2 12/28/24 17:20 98.1 83 18 131/81 (98) 95 98.1 12/28/24 07:45 Room Air* 0 21 Physical Exam INITIAL VITAL SIGNS: Reviewed by me GENERAL: Elderly female, alert and oriented x3, in no acute distress HEAD: Head is normocephalic and atraumatic. EYES: EOMI, PERRL. No scleral icterus. No conjunctival injection. ENT: Moist mucous membranes. NECK: Supple, No masses, Full range of motion. RESPIRATORY: No tachypnea. Clear breath sounds bilaterally. No wheezing, rales, rhonchi. CV: Irregularly irregular rhythm, atrial fibrillation at a controlled rate GI/: Active bowel sounds, soft, nondistended, nontender. No guarding. No rebound. No masses. No CVA tenderness. INTEGUMENTARY: Warm and dry. No obvious rashes. NEUROLOGIC: Alert and oriented. Face is symmetric. Speech is normal. Moves all extremities equally. Labs/Diagnostic Data Labs Test 12/27/24 13:58 12/27/24 05:59 12/26/24 19:27 12/26/24 15:00 Range/Units Troponin I High Sensitivity 28 </=34 ng/L Sodium Level 143 136-145 mmol/L Potassium Level 4.2 3.5-5.1 mmol/L Chloride Level 108 H 98-107 mmol/L Carbon Dioxide Level 24 20-31 mmol/L Anion Gap 11 5-15 Blood Urea Nitrogen 30 H 9-23 mg/dL Creatinine 1.39 H 0.550-1.02 mg/dL Glomerular Filtration Rate Calc 39 >90 mL/min BUN/Creatinine Ratio 21.6 H 10.0-20.0 Serum Glucose 129 H 74-106 mg/dL Calcium Level 9.2 8.7-10.4 mg/dL Magnesium Level 1.9 1.6-2.6 mg/dL POC Glucose 129 H 70-106 mg/dl Urine Color Yellow Yellow Urine Clarity Turbid H Clear Urine pH 5.5 5.0-9.0 Urine Specific [place] 1.020 1.001-1.035 Urine Protein 1+ H Negative Urine Ketones Negative Negative Urine Blood Negative Negative /uL Urine Nitrite Negative Negative Urine Bilirubin Negative Negative Urine Urobilinogen Normal Negative mg/dL Urine Leukocyte Esterase 3+ Negative /uL Urine RBC 7 0 - 4 /hpf Urine Microscopic WBC 18 H 0-5 /HPF Urine Squamous Epithelial Cells Few <5 /hpf Urine Bacteria Few H None Seen /hpf Urine Mucus Few None Seen Urine Glucose Normal Normal mg/dL Test 12/26/24 14:41 Range/Units White Blood Count 7.6 4.4-10.8 10^3/uL Red Blood Count 5.73 H 4.0-5.20 10^6/uL Hemoglobin 15.8 12.2-16.2 g/dL Hematocrit 47.9 H 36.0-46.0 % Mean Corpuscular Volume 83.7 80.0-100.0 fL Mean Corpuscular Hemoglobin 27.6 L 28.0-32.0 pg Mean Corpuscular Hemoglobin Concent 33.0 32.0-36.0 g/dL Red Cell Distribution Width 14.4 H 11.8-14.3 % Platelet Count 256 140-450 10^3/uL Mean Platelet Volume 9.8 6.9-10.8 fL Neutrophils (%) (Auto) 66.5 37.0-80.0 % Lymphocytes (%) (Auto) 23.5 10.0-50.0 % Monocytes (%) (Auto) 7.5 0.0-12.0 % Eosinophils (%) (Auto) 1.7 0.0-7.0 % Basophils (%) (Auto) 0.8 0.0-2.0 % Neutrophils # (Auto) 5.0 1.6-8.6 10 ^3/uL Lymphocytes # (Auto) 1.8 0.4-5.4 10 ^3/uL Monocytes # (Auto) 0.6 0-1.3 10 ^3/uL Eosinophils # (Auto) 0.1 0-0.8 10 ^3/uL Basophils # (Auto) 0.1 0-0.2 10 ^3/uL Nucleated Red Blood Cells 0.1 % Lactic Acid Level 1.3 0.4-2.0 mmol/L Total Bilirubin 0.8 0.2-1.0 mg/dL Aspartate Amino Transferase (AST) 23 <34 U/L Alanine Aminotransferase (ALT) 19 7-40 U/L Alkaline Phosphatase 76 46-116 U/L B-Type Natriuretic Peptide 291.29 0-100 pg/mL Total Protein 7.6 5.7-8.2 g/dL Albumin 4.7 3.2-4.8 g/dL Microbiology Date/Time Source Procedure Growth Status 12/26/24 15:00 Urine - Midstream Clean Catch Urine Culture - Preliminary Resulted ROCEDURE(s): CXRP - CHEST PORTABLE REASON: dizzy, afib ORDER NUMBER(s): [id number], ACCESSION NUMBER(s): [id number] CHEST PORTABLE, HISTORY: dizzy, afib COMPARISON: None None TECHNICAL DATA: 1 view of the chest was obtained. FINDINGS: Lines and tubes: None Cardiomediastinal silhouette: normal Pulmonary vasculature: normal Lung expansion: normal Lung airspace: normal Lung interstitium: normal Pleura: normal Pneumothorax: no Bones: Unremarkable Other: no IMPRESSION: No acute intrathoracic abnormality. Assessment Unspecified AFib with RVR, now at a controlled rate HFrEF Hypertension Dyslipidemia Diabetes type 2 Hypothyroidism Plan/Recommendation (Dr. Dawson ): 1. AFib with RVR * Patient initially in AFib with RVR response, started on amiodarone drip in ED. Now rate controlled. Plan to sensation to oral amiodarone. Continue monitoring rhythm * Continue with Xarelto 2. HFrEF * EF 40 -50 %, improved compared to previous echo * Continue with GDM T for HF * Medication adherence and blood pressure control and forced Cardiology follow-up with Dr. Aviles for continued rhythm and heart failure management This medical document was created using an electronic medical record system with voice recognition software and computerized dictation system. Although this document has been carefully reviewed, there might still be some phonetic and typographical errors. Occasional wrong-word or ``sound-alike substitutions may have occurred due to the inherent limitations of voice recognition software. These areas are purely typographical due to imperfections of the software programs and do not reflect any compromise in the patient's medical care. Ple ase read the chart carefully and recognize, using context, where these substitutions have occurred. Plan discussed with: Patient Plan discussed with: Patient NYHA Physical activity limitations: NA Date of Service: Dec 28, 2024 Billing Provider: DO DAWSON MD Cardiology Common Codes: CONSULT ONLY Cardiology Consultation Codes: [id number] CONSULT <45MIN WILLIAM MONROY CAREER SERVICES REPRESENTATIVE Dec 28, 2024 18:23
--- NOTE | 2024-12-28 19:15 | DVHPN2 ---
Subjective Patient's remains on IV amiodarone drip. 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 Medications Current Medications Medications Dose Ordered Sig/Edwin Route Start Time Stop Time Status Last Admin Dose Admin Nitroglycerin 0.4 mg Q5MINP PRN SL 12/26/24 19:45 Morphine Sulfate 2 mg Q30M PRN IV 12/26/24 19:45 Acetaminophen 650 mg Q6HPRN PRN PO 12/26/24 19:45 12/27/24 16:57 650 MG Famotidine 20 mg BID PO 12/26/24 22:00 12/28/24 09:02 20 MG Ondansetron HCl 4 mg Q6HPRN PRN IV 12/26/24 19:45 Ceftriaxone Sodium 50 ml @ 100 mls/hr DAILY IV 12/27/24 10:00 12/28/24 09:02 100 MLS/HR Paroxetine HCl 20 mg DAILY PO 12/27/24 10:00 12/28/24 09:02 20 MG Rivaroxaban 15 mg DAILY PO 12/27/24 10:00 12/28/24 09:02 15 MG Atorvastatin Calcium 20 mg DAILY PO 12/27/24 10:00 12/28/24 09:02 20 MG Levothyroxine Sodium 100 mcg DAILY@0600 PO 12/27/24 06:00 12/28/24 06:05 100 MCG Amiodarone HCl 200 mg BID PO 12/29/24 06:00 Amiodarone HCl 200 mg Q12HR PO 12/29/24 10:00 UNV Laboratory Results Laboratory Tests 12/26/24 14:41 12/27/24 05:59 Urinalysis Test 12/26/24 15:00 Urine Color Yellow (Yellow) Urine Clarity Turbid (Clear) H Urine pH 5.5 (5.0-9.0) Urine Specific [place] 1.020 (1.001-1.035) Urine Protein 1+ (Negative) H Urine Ketones Negative (Negative) Urine Blood Negative /uL (Negative) Urine Nitrite Negative (Negative) Urine Bilirubin Negative (Negative) Urine Urobilinogen Normal mg/dL (Negative) Urine Leukocyte Esterase 3+ /uL (Negative) Urine RBC 7 /hpf (0 - 4) Urine Microscopic WBC 18 /HPF (0-5) H Urine Squamous Epithelial Cells Few /hpf (<5) Urine Bacteria Few /hpf (None Seen) H Urine Mucus Few (None Seen) Urine Glucose Normal mg/dL (Normal) Microbiology Microbiology Date/Time Source Procedure Growth Status 12/26/24 15:00 Urine - Midstream Clean Catch Urine Culture - Preliminary Resulted Assessment/Plan Assessment/Plan This is a 79 yo female with known history of CHF, atrial fibrillation, hypertension, hyperlipidemia, DM, Thyroid disease, Chronic renal disease who presents from cardiology office for dizziness and rapid irregular rhythm who was found to have 1. AFib with RVR currently on IV amiodarone drip 2. Mildly elevated troponin suspect demand ischemia 3. Acute on chronic congestive heart failure unspecified 4. Hypertension 5. Diabetes mellitus type 2 6. Urinary tract-infection IV amiodarone drip, IV antibiotics, follow up Cardiology recommendation -continue Harjeetrelkeysha, Plan discussed with: Patient Date of Service: Dec 28, 2024 Billing Provider: ZOIE GOODRICH MD Common Visit Codes: NOT BILLABLE ZOIE GOODRICH MD Dec 28, 2024 19:15
--- NOTE | 2024-12-28 23:24 | DVHINCON2 ---
Date Seen: Dec 28, [address] Moran Reason for Consultation AFib with RVR History of Present Illness This is a 79-year-old female with a past medical history of atrial fibrillation, congestive heart failure, hypertension, hyperlipidemia, diabetes mellitus, thyroid disease, and chronic kidney disease, who presents to emergency department for a complaint of dizziness in the setting of atrial fibrillation with rapid ventricular response. Patient was referred by her swimming pool maintenance, Dr. Aviles, after reporting a sudden onset of lightheadedness upon waking the previous morning. She had taken her morning medication as prescribed. In the emergency department, she was found to be in atrial fibrillation with RVR and was started on amiodarone drip. On reassessment, the patient remained in atrial fibrillation, but with a now controlled ventricular rate. She reports overall improvement in symptoms and denies chest pain or shortness of breath. The plan is to transition her to oral amiodarone and advised close outpatient follow-up with her swimming pool maintenance. The patient is also advised to continue taking Xarelto as prescribed, as well as to remain on GDM T for heart failure. Chest x-ray showed NAD. Troponin minimally elevated. Patient was admitted to the hospital. I am asked to consult on this patient. Past Medical History As stated in HPI Past Surgical History Denies Family History: Congenital anomaly G8 MOTHER G8 FATHER, Onset:Unknown Diabetes mellitus Allergies: Coded Allergies: Penicillins (Verified Allergy, Severe, 10/26/21) Home Meds Active Scripts Sacubitril-Valsartan (Entresto 24-26 mg) 1 Tab Tab, 1 TAB PO BID, #90 TAB Prov:STEVE JENKINS MD 03/20/23 Metoprolol Succinate (Toprol Xl) 25 Mg Tab, 1 TAB PO DAILY, #90 TAB 1 Refill Prov:STEVE JENKINS MD 03/20/23 Amiodarone Hcl (Amiodarone Hcl) 200 Mg Tab, 1 TAB PO DAILY, #30 TAB Prov:STEVE JENKINS MD 03/20/23 Rivaroxaban (Xarelto Tablet) 15 Mg Tb, 15 MG PO DAILY, #60 TAB Prov:STEVE JENKINS MD 03/20/23 Reported Medications Amlodipine Besylate (Amlodipine Besylate) 5 Mg Tab, 1 TAB PO DAILY for 90 Days, #90 12/27/24 Atorvastatin Calcium (ATORVASTATIN CALCIUM) 40 Mg Tab, 1 TAB PO DAILY for 100 Days, #100 12/27/24 Hydralazine Hcl (Hydralazine Hcl) 50 Mg Tab, 1 TAB PO TID for 30 Days, #90 12/27/24 Paroxetine Hydrochloride (Paroxetine Hydrochloride) 10 Mg Tab, 1.5 TAB PO DAILY for 100 Days, #150 12/27/24 Metformin Hydrochloride (Metformin Hcl) 850 Mg Tab, 1 TAB PO BID 10/26/21 Levothyroxine Sodium (Levothyroxine Sodium) 100 Mcg Tab, 1 TAB PO DAILY for 100 Days, #100 10/26/21 Tramadol Hcl (Tramadol Hcl) 50 Mg Tab, 1 TAB PO BIDPRN PRN for PAIN SCALE 1 THRU 6 10/26/21 Discontinued Reported Medications Paroxetine (PAXIL TABLET) 20 Mg Tb, 1 TAB PO DAILY, #90 TAB 3 Refills 10/26/21 Current Medications Current Medications Medications (Trade) Dose Ordered Sig/Edwin Route PRN Reason Start Time Stop Time Status Last Admin Amiodarone HCl (Cordarone Tablet) 200 mg BID PO 12/29/24 06:00 Amiodarone HCl (Cordarone Tablet) 200 mg Q12HR PO 12/29/24 10:00 UNV Review of Systems Constitutional: No symptom reported Ears, Nose, & Throat: No symptom reported Eyes: No symptom reported Neurological: No symptoms reported Pulmonary/Respiratory: No symptom reported Cardiovascular: Positive for dizziness, denies chest pain, palpitation at the time of assessment Gastrointestinal: No symptom reported Genitourinary: No symptom reported Musculoskeletal: No symptom reported Skin: No symptom reported Psychiatric: No symptom reported Endocrine: No symptom reported Hemotologic/Lymphatic: No symptom reported Vital Signs Vital Signs Date Time Temp Pulse Resp B/P (MAP) Pulse Ox O2 Delivery O2 Flow Rate FiO2 12/28/24 17:20 98.1 83 18 131/81 (98) 95 98.1 12/28/24 07:45 Room Air* 0 21 Physical Exam GENERAL: Alert and oriented x 3. No acute distress. EYES: PERRL, EOMI. Anicteric. HENT: Moist mucous membranes. LUNGS: Clear to auscultation bilaterally. CARDIOVASCULAR: Irregular rate and rhythm. Atrial fibrillation at a controlled rate. ABDOMEN: Soft, nontender and nondistended. EXTREMITIES: No edema. NEUROLOGIC: No focal neurological deficits. SKIN: Warm, dry. Labs/Diagnostic Data Labs Test 12/27/24 13:58 12/27/24 05:59 12/26/24 19:27 12/26/24 15:00 Range/Units Troponin I High Sensitivity 28 </=34 ng/L Sodium Level 143 136-145 mmol/L Potassium Level 4.2 3.5-5.1 mmol/L Chloride Level 108 H 98-107 mmol/L Carbon Dioxide Level 24 20-31 mmol/L Anion Gap 11 5-15 Blood Urea Nitrogen 30 H 9-23 mg/dL Creatinine 1.39 H 0.550-1.02 mg/dL Glomerular Filtration Rate Calc 39 >90 mL/min BUN/Creatinine Ratio 21.6 H 10.0-20.0 Serum Glucose 129 H 74-106 mg/dL Calcium Level 9.2 8.7-10.4 mg/dL Magnesium Level 1.9 1.6-2.6 mg/dL POC Glucose 129 H 70-106 mg/dl Urine Color Yellow Yellow Urine Clarity Turbid H Clear Urine pH 5.5 5.0-9.0 Urine Specific [place] 1.020 1.001-1.035 Urine Protein 1+ H Negative Urine Ketones Negative Negative Urine Blood Negative Negative /uL Urine Nitrite Negative Negative Urine Bilirubin Negative Negative Urine Urobilinogen Normal Negative mg/dL Urine Leukocyte Esterase 3+ Negative /uL Urine RBC 7 0 - 4 /hpf Urine Microscopic WBC 18 H 0-5 /HPF Urine Squamous Epithelial Cells Few <5 /hpf Urine Bacteria Few H None Seen /hpf Urine Mucus Few None Seen Urine Glucose Normal Normal mg/dL Test 12/26/24 14:41 Range/Units White Blood Count 7.6 4.4-10.8 10^3/uL Red Blood Count 5.73 H 4.0-5.20 10^6/uL Hemoglobin 15.8 12.2-16.2 g/dL Hematocrit 47.9 H 36.0-46.0 % Mean Corpuscular Volume 83.7 80.0-100.0 fL Mean Corpuscular Hemoglobin 27.6 L 28.0-32.0 pg Mean Corpuscular Hemoglobin Concent 33.0 32.0-36.0 g/dL Red Cell Distribution Width 14.4 H 11.8-14.3 % Platelet Count 256 140-450 10^3/uL Mean Platelet Volume 9.8 6.9-10.8 fL Neutrophils (%) (Auto) 66.5 37.0-80.0 % Lymphocytes (%) (Auto) 23.5 10.0-50.0 % Monocytes (%) (Auto) 7.5 0.0-12.0 % Eosinophils (%) (Auto) 1.7 0.0-7.0 % Basophils (%) (Auto) 0.8 0.0-2.0 % Neutrophils # (Auto) 5.0 1.6-8.6 10 ^3/uL Lymphocytes # (Auto) 1.8 0.4-5.4 10 ^3/uL Monocytes # (Auto) 0.6 0-1.3 10 ^3/uL Eosinophils # (Auto) 0.1 0-0.8 10 ^3/uL Basophils # (Auto) 0.1 0-0.2 10 ^3/uL Nucleated Red Blood Cells 0.1 % Lactic Acid Level 1.3 0.4-2.0 mmol/L Total Bilirubin 0.8 0.2-1.0 mg/dL Aspartate Amino Transferase (AST) 23 <34 U/L Alanine Aminotransferase (ALT) 19 7-40 U/L Alkaline Phosphatase 76 46-116 U/L B-Type Natriuretic Peptide 291.29 0-100 pg/mL Total Protein 7.6 5.7-8.2 g/dL Albumin 4.7 3.2-4.8 g/dL Microbiology Date/Time Source Procedure Growth Status 12/26/24 15:00 Urine - Midstream Clean Catch Urine Culture - Preliminary Resulted Assessment Unspecified AFib with RVR, now at a controlled rate. HFrEF. Hypertension. Dyslipidemia. Diabetes type 2. Hypothyroidism. Plan/Recommendation I agree with your ongoing assessment and care of plan. Patient has been seen by Yuliana Trevino NP on my behalf, her and I discussed the plan with the patient. Patient initially in AFib with RVR response, started on amiodarone drip in ED. Now rate controlled. Plan to sensation to oral amiodarone. Continue monitoring rhythm. Continue with Xarelto. EF 40 -50 %, improved compared to previous echo. Continue with GDM T for HF. Medication adherence and blood pressure control and forced. Cardiology follow-up with Dr. Aviles for continued rhythm and heart failure management. Additional plan as per the hospital course. Plan discussed with: Patient NYHA Physical activity limitations: NA Date of Service: Dec 28, 2024 Billing Provider: DO LYN MD Cardiology Common Codes: [id number] INP/OBS CARE (High) Cardiology Consultation Codes: [id number] CONSULT <45MIN DO LYN MD Dec 28, 2024 18:37
[2024-12-29] VITALS (7 sets, daily range): BP systolic 96–145; BP diastolic 73–84; PULSE 74–115; RESP 16–20; TEMP 97.5–97.9; O2SAT 93–97
[2024-12-29] MEDS: AMIODARONE HCL 200 MG TAB PO SCH (05:35)
[2024-12-29] MEDS ORDERED: AMIODARONE HCL 200 MG TAB PO SCH (10:00)
[2024-12-29] MEDS: METOPROLOL TARTRATE 25 MG TAB PO ONE (13:57)
[2024-12-29 14:36] LABS: Potassium 4.1 mmol/L (3.5-5.1); Sodium 142 mmol/L (136-145)
[2024-12-29 14:37] LABS: Anion Gap 11 (5-15); Carbon Dioxide 23 mmol/L (20-31); Chloride 108 mmol/L (98-107)
[2024-12-29 14:38] LABS: Calcium 10.1 mg/dL (8.7-10.4)
[2024-12-29 14:42] LABS: BUN/Creatinine Ratio 12.8 (10.0-20.0); Blood Urea Nitrogen 19 mg/dL (9-23); Glucose 138 mg/dL (74-106)
--- NOTE | 2024-12-29 16:23 | DVHPN2 ---
Subjective Patient is currently off the amiodarone drip, amiodarone p.o. has been started. Patient's heart rate still goes to 120s to 130s, beta yocasta has been added. 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 Medications Current Medications Medications Dose Ordered Sig/[place] Route Start Time Stop Time Status Last Admin Dose Admin Nitroglycerin 0.4 mg Q5MINP PRN SL 12/26/24 19:45 Morphine Sulfate 2 mg Q30M PRN IV 12/26/24 19:45 Acetaminophen 650 mg Q6HPRN PRN PO 12/26/24 19:45 12/27/24 16:57 650 MG Famotidine 20 mg BID PO 12/26/24 22:00 12/29/24 09:11 20 MG Ondansetron HCl 4 mg Q6HPRN PRN IV 12/26/24 19:45 Ceftriaxone Sodium 50 ml @ 100 mls/hr DAILY IV 12/27/24 10:00 12/29/24 09:11 100 MLS/HR Paroxetine HCl 20 mg DAILY PO 12/27/24 10:00 12/29/24 09:11 20 MG Rivaroxaban 15 mg DAILY PO 12/27/24 10:00 12/29/24 09:11 15 MG Atorvastatin Calcium 20 mg DAILY PO 12/27/24 10:00 12/29/24 09:11 20 MG Levothyroxine Sodium 100 mcg DAILY@0600 PO 12/27/24 06:00 12/29/24 05:35 100 MCG Amiodarone HCl 200 mg BID PO 12/29/24 06:00 12/29/24 10:45 200 MG Laboratory Results Laboratory Tests 12/26/24 14:41 12/29/24 13:46 Chemistry Test 12/29/24 13:46 Calcium Level 10.1 mg/dL (8.7-10.4) Urinalysis Test 12/26/24 15:00 Urine Color Yellow (Yellow) Urine Clarity Turbid (Clear) H Urine pH 5.5 (5.0-9.0) Urine Specific [place] 1.020 (1.001-1.035) Urine Protein 1+ (Negative) H Urine Ketones Negative (Negative) Urine Blood Negative /uL (Negative) Urine Nitrite Negative (Negative) Urine Bilirubin Negative (Negative) Urine Urobilinogen Normal mg/dL (Negative) Urine Leukocyte Esterase 3+ /uL (Negative) Urine RBC 7 /hpf (0 - 4) Urine Microscopic WBC 18 /HPF (0-5) H Urine Squamous Epithelial Cells Few /hpf (<5) Urine Bacteria Few /hpf (None Seen) H Urine Mucus Few (None Seen) Urine Glucose Normal mg/dL (Normal) Microbiology Microbiology Date/Time Source Procedure Growth Status 12/26/24 15:00 Urine - Midstream Clean Catch Urine Culture - Final Complete Assessment/Plan Assessment/Plan This is a 79 yo female with known history of CHF, atrial fibrillation, hypertension, hyperlipidemia, DM, Thyroid disease, Chronic renal disease who presents from cardiology office for dizziness and rapid irregular rhythm who was found to have 1. AFib with RVR currently off of amiodarone drip 2. Mildly elevated troponin suspect demand ischemia 3. Acute on chronic congestive heart failure unspecified 4. Hypertension 5. Diabetes mellitus type 2 6. Urinary tract-infection -p.o. amiodarone, add beta yocasta, IV antibiotics, follow up Cardiology recommendation -continue Xarelto, Plan discussed with: Patient, Other Date of Service: Dec 29, 2024 Billing Provider: ZOIE GOODRICH MD Common Visit Codes: NOT BILLABLE ZOIE GOODRICH MD Dec 29, 2024 16:23
[2024-12-29] MEDS: METOPROLOL TARTRATE 25 MG TAB PO SCH (21:27)
--- NOTE | 2024-12-29 23:52 | DVHPN2 ---
Progress Note - Dictate Date Seen: Dec 29, 2024 Medical Necessity Reason Pt with a Central, PICC or Fol: No Subjective Patient was seen and evaluated in follow up. Patient is complaining of generalized pain. HR is fluctuating. MOISTURE TESTER 1.48. Telemetry reviewed. vital signs Vital Sign Date Time Temp Pulse Resp B/P (MAP) Pulse Ox O2 Delivery O2 Flow Rate FiO2 12/29/24 17:00 97.9 83 20 137/79 (98) 94 97.9 12/29/24 08:00 Room Air* 0 21 Total Intake and Output 12/28/24 12/28/24 12/29/24 15:00 23:00 07:00 Intake Total 150 ml 850 ml 800 ml Balance 150 ml 850 ml 800 ml medications Current Medications Medications Dose Ordered Sig/Edwin Route Start Time Stop Time Status Last Admin Dose Admin Nitroglycerin 0.4 mg Q5MINP PRN SL 12/26/24 19:45 Morphine Sulfate 2 mg Q30M PRN IV 12/26/24 19:45 Acetaminophen 650 mg Q6HPRN PRN PO 12/26/24 19:45 12/27/24 16:57 650 MG Famotidine 20 mg BID PO 12/26/24 22:00 12/29/24 09:11 20 MG Ondansetron HCl 4 mg Q6HPRN PRN IV 12/26/24 19:45 Ceftriaxone Sodium 50 ml @ 100 mls/hr DAILY IV 12/27/24 10:00 12/29/24 09:11 100 MLS/HR Paroxetine HCl 20 mg DAILY PO 12/27/24 10:00 12/29/24 09:11 20 MG Rivaroxaban 15 mg DAILY PO 12/27/24 10:00 12/29/24 09:11 15 MG Atorvastatin Calcium 20 mg DAILY PO 12/27/24 10:00 12/29/24 09:11 20 MG Levothyroxine Sodium 100 mcg DAILY@0600 PO 12/27/24 06:00 12/29/24 05:35 100 MCG Amiodarone HCl 200 mg BID PO 12/29/24 06:00 12/29/24 10:45 200 MG Metoprolol Tartrate 12.5 mg BID PO 12/29/24 22:00 objective GENERAL: Alert and oriented x 3. No acute distress. EYES: PERRL, EOMI. Anicteric. HENT: Moist mucous membranes. LUNGS: Clear to auscultation bilaterally. CARDIOVASCULAR: Irregular rate and rhythm. Atrial fibrillation at a controlled rate. ABDOMEN: Soft, nontender and nondistended. EXTREMITIES: No edema. NEUROLOGIC: No focal neurological deficits. SKIN: Warm, dry. laboratory and microbiology Laboratory Tests 12/29/24 13:46 12/26/24 14:41 Test 12/29/24 13:46 Range/Units Serum Glucose 138 H 74-106 mg/dL Problem List Unspecified AFib with RVR, now at a controlled rate. HFrEF. Hypertension. Dyslipidemia. Diabetes type 2. Hypothyroidism. Assessment/Plan Continued all current supportive medical care. Amiodarone. Lipitor, Metoprolol. IV antibiotics as ordered. Morphine for pain management. Xarelto. Additional plan as per the hospital course. Dietary Evaluation Review Recommendations by RD: Dietary education by RD Comments: 1) Encourage optimal PO intake 2) Refer to outpatient RD/CDCES for weight management 3) Follow-up with cardiology 4) Continue to monitor I&O, labs, and skin integrity Expected Outcomes/Goals: 1) appetite and labs to improve 2) f/u in 3-5 days Plan discussed with: Patient DO LYN MD Dec 29, 2024 20:14
[2024-12-30] VITALS (7 sets, daily range): BP systolic 132–156; BP diastolic 59–89; PULSE 62–89; RESP 16–18; TEMP 36.4; O2SAT 91–97
--- NOTE | 2024-12-30 10:29 | ECG ---
[facility] Test Date: 2024-12-26 Test Time: 17:22:09 Pat Name: SRIKANTH PIERCE Department: ED Room: 0249T B Gender: F Rolls Baker: SETH : 1945 Requested By: DANIELLE PARMAR Order Number: [id number] Reading MD: Avery Carlisle Measurements Intervals Paia Rate: 137 P: 0 AK: 0 QRS: 57 QRSD: 105 T: 231 QT: 299 QTc: 452 Interpretive Statements Atrial fibrillation Repolarization abnormality, prob rate related Electronically Signed On 12-31-2024 22:31:43 PDT by Avery Carlisle Please click the below link to view image of tracing.
[2024-12-30] MEDS ORDERED: METO25TA36 PO (16:20)
[2024-12-30] MEDS ORDERED: AMIO200T13 PO (16:20)
--- NOTE | 2024-12-30 16:22 | DVHDS2 ---
Discharge Summary Date of Admission Dec 26, 2024 at 19:32 Date of Discharge: Dec 30, 2024 Labs/Diagnostic Data: Laboratory Results Test 12/29/24 13:46 12/27/24 13:58 12/27/24 05:59 12/26/24 19:27 Sodium Level 142 mmol/L (136-145) Potassium Level 4.1 mmol/L (3.5-5.1) Chloride Level 108 mmol/L (98-107) Carbon Dioxide Level 23 mmol/L (20-31) Anion Gap 11 (5-15) Blood Urea Nitrogen 19 mg/dL (9-23) Creatinine 1.48 mg/dL (0.550-1.02) Glomerular Filtration Rate Calc 36 mL/min (>90) BUN/Creatinine Ratio 12.8 (10.0-20.0) Serum Glucose 138 mg/dL (74-106) Calcium Level 10.1 mg/dL (8.7-10.4) Troponin I High Sensitivity 28 ng/L (</=34) Magnesium Level 1.9 mg/dL (1.6-2.6) POC Glucose 129 mg/dl (70-106) Test 12/26/24 15:00 12/26/24 14:41 Urine Color Yellow (Yellow) Urine Clarity Turbid (Clear) Urine pH 5.5 (5.0-9.0) Urine Specific [place] 1.020 (1.001-1.035) Urine Protein 1+ (Negative) Urine Ketones Negative (Negative) Urine Blood Negative /uL (Negative) Urine Nitrite Negative (Negative) Urine Bilirubin Negative (Negative) Urine Urobilinogen Normal mg/dL (Negative) Urine Leukocyte Esterase 3+ /uL (Negative) Urine RBC 7 /hpf (0 - 4) Urine Microscopic WBC 18 /HPF (0-5) Urine Squamous Epithelial Cells Few /hpf (<5) Urine Bacteria Few /hpf (None Seen) Urine Mucus Few (None Seen) Urine Glucose Normal mg/dL (Normal) White Blood Count 7.6 10^3/uL (4.4-10.8) Red Blood Count 5.73 10^6/uL (4.0-5.20) Hemoglobin 15.8 g/dL (12.2-16.2) Hematocrit 47.9 % (36.0-46.0) Mean Corpuscular Volume 83.7 fL (80.0-100.0) Mean Corpuscular Hemoglobin 27.6 pg (28.0-32.0) Mean Corpuscular Hemoglobin Concent 33.0 g/dL (32.0-36.0) Red Cell Distribution Width 14.4 % (11.8-14.3) Platelet Count 256 10^3/uL (140-450) Mean Platelet Volume 9.8 fL (6.9-10.8) Neutrophils (%) (Auto) 66.5 % (37.0-80.0) Lymphocytes (%) (Auto) 23.5 % (10.0-50.0) Monocytes (%) (Auto) 7.5 % (0.0-12.0) Eosinophils (%) (Auto) 1.7 % (0.0-7.0) Basophils (%) (Auto) 0.8 % (0.0-2.0) Neutrophils # (Auto) 5.0 10 ^3/uL (1.6-8.6) Lymphocytes # (Auto) 1.8 10 ^3/uL (0.4-5.4) Monocytes # (Auto) 0.6 10 ^3/uL (0-1.3) Eosinophils # (Auto) 0.1 10 ^3/uL (0-0.8) Basophils # (Auto) 0.1 10 ^3/uL (0-0.2) Nucleated Red Blood Cells 0.1 % Lactic Acid Level 1.3 mmol/L (0.4-2.0) Total Bilirubin 0.8 mg/dL (0.2-1.0) Aspartate Amino Transferase (AST) 23 U/L (<34) Alanine Aminotransferase (ALT) 19 U/L (7-40) Alkaline Phosphatase 76 U/L (46-116) B-Type Natriuretic Peptide 291.29 pg/mL (0-100) Total Protein 7.6 g/dL (5.7-8.2) Albumin 4.7 g/dL (3.2-4.8) Other Laboratory Tests 12/29/24 13:46 12/26/24 14:41 Brief Hx & Hospital Course: This is a 79 yo female with known history of CHF, atrial fibrillation, hypertension, hyperlipidemia, DM, Thyroid disease, Chronic renal disease who presents from cardiology office for dizziness and rapid irregular rhythm who was found to have AFib with a RVR started on amiodarone drip. Patient has a mildly elevated troponin which was thought secondary to demand ischemia. Patient also has acute on chronic congestive heart failure exacerbation which was treated with IV diuretics. Patient was being seen by Cardiology currently cleared to be discharged. Patient is being discharged under stable condition. Condition at Discharge: Stable Final Diagnosis/Problems List This is a 79 yo female with known history of CHF, atrial fibrillation, hypertension, hyperlipidemia, DM, Thyroid disease, Chronic renal disease who presents from cardiology office for dizziness and rapid irregular rhythm who was found to have 1. AFib with RVR currently off of amiodarone drip 2. Mildly elevated troponin suspect demand ischemia 3. Acute on chronic congestive heart failure unspecified 4. Hypertension 5. Diabetes mellitus type 2 6. Urinary tract-infection Discharge Disposition: Home with Health Services SNF Discharge Will this Physician continue t: No Discharge Instruct/Medications Diet: Cardiac 2g Na,low cholest Activity: No Restrictions, As Tolerated Follow Up/Referral: Follow up with the PCP and Cardiology in 1-2 weeks Medications: Continue amiodarone 200 b.i.d. Metoprolol succinate 25 p.o. daily Xarelto as reconciled. Discharge Statement: "Patient was advised to return to the ER or call 911 if any headaches, dizziness, shortness of breath, chest pain, abdominal pain, bleeding, fevers, or worsening of medical condition. Patient was counseled about treatment plan, medications, possible side effects, patientverbalized understanding. All questions were answered to the best of my ability. This discharge took greater then 30 minutes in planning, reviewing documentation, counseling the patient, and discussing with other team members." ASSESSMENT ASSESSMENT Assessment This is a 79 yo female with known history of CHF, atrial fibrillation, hypertension, hyperlipidemia, DM, Thyroid disease, Chronic renal disease who presents from cardiology office for dizziness and rapid irregular rhythm who was found to have 1. AFib with RVR currently off of amiodarone drip 2. Mildly elevated troponin suspect demand ischemia 3. Acute on chronic congestive heart failure unspecified 4. Hypertension 5. Diabetes mellitus type 2 6. Urinary tract-infection Date of Service: Dec 30, 2024 Billing Provider: ZOIE GOODRICH MD Common Visit Codes: NOT BILLABLE ZOIE GOODRICH MD Dec 30, 2024 16:22
--- NOTE | 2024-12-30 21:47 | DVHPN2 ---
Progress Note - Dictate Date Seen: Dec 30, 2024 Medical Necessity Reason Pt with a Central, PICC or Fol: No Subjective Patient was seen and evaluated in follow up. Patient has no new complaints at this time. Patient denies any cardiac symptoms. Patient is cardiac stable for discharge. Telemetry reviewed. vital signs Vital Sign Date Time Temp Pulse Resp B/P (MAP) Pulse Ox O2 Delivery O2 Flow Rate FiO2 12/30/24 16:46 97.6 62 16 134/59 (84) 96 97.6 12/30/24 08:04 Room Air* 0 21 Total Intake and Output 12/29/24 12/29/24 12/30/24 15:00 23:00 07:00 Intake Total 290 ml 1030 ml 1300 ml Output Total 600 ml Balance 290 ml 430 ml 1300 ml objective GENERAL: Alert and oriented x 3. No acute distress. EYES: PERRL, EOMI. Anicteric. HENT: Moist mucous membranes. LUNGS: Clear to auscultation bilaterally. CARDIOVASCULAR: Irregular rate and rhythm. Atrial fibrillation at a controlled rate. ABDOMEN: Soft, nontender and nondistended. EXTREMITIES: No edema. NEUROLOGIC: No focal neurological deficits. SKIN: Warm, dry. laboratory and microbiology Laboratory Tests 12/29/24 13:46 12/26/24 14:41 Test 12/29/24 13:46 Range/Units Serum Glucose 138 H 74-106 mg/dL Problem List Unspecified AFib with RVR, now at a controlled rate. HFrEF. Hypertension. Dyslipidemia. Diabetes type 2. Hypothyroidism. Assessment/Plan Continued all current supportive medical care. Amiodarone. Lipitor, Metoprolol. IV antibiotics as ordered. Morphine for pain management. Xarelto. Additional plan as per the hospital course. Dietary Evaluation Review Recommendations by RD: Dietary education by RD Comments: 1) Encourage optimal PO intake 2) Refer to outpatient RD/CD[facility] for weight management 3) Follow-up with cardiology 4) Continue to monitor I&O, labs, and skin integrity Expected Outcomes/Goals: 1) appetite and labs to improve 2) f/u in 3-5 days Plan discussed with: Patient DO LYN MD Dec 30, 2024 21:46
== END 2024-12-30 17:50 | disposition home or self-care (01) | DRG 308 ==
LOC: ER 14:20 → OVERFLOW 19:32 → TELE-EAST 22:11
PROVIDERS: ADMIT Internal Medicine; ATTEND Internal Medicine
DX: I48.91 Unspecified atrial fibrillation (principal); I50.23 Acute on chronic systolic (congestive) heart failure; I13.0 Hypertensive heart and chronic kidney disease with heart failure and stage 1 through stage 4 chronic kidney disease, or unspecified chronic kidney disease; N39.0 Urinary tract infection, site not specified; I24.89 Other forms of acute ischemic heart disease; E78.5 Hyperlipidemia, unspecified; E11.22 Type 2 diabetes mellitus with diabetic chronic kidney disease; I25.10 Atherosclerotic heart disease of native coronary artery without angina pectoris; N18.9 Chronic kidney disease, unspecified; E03.9 Hypothyroidism, unspecified; Z79.01 Long term (current) use of anticoagulants; Z79.84 Long term (current) use of oral hypoglycemic drugs; Z83.3 Family history of diabetes mellitus; Z87.891 Personal history of nicotine dependence; Z88.0 Allergy status to penicillin; Z79.899 Other long term (current) drug therapy
CPT/HCPCS: 36415; 71045; 80048; 80053; 81001; 82962; 83605; 83735; 83880; 84484; 85025; 87086; 93005; 93306; 96365; 97163; 99291; G0378

== ENCOUNTER 2025-04-17 09:18 | Emergency (ER) | payer OTHER ==
[~2025-04-17] VITALS: Ht 154.9 cm; Wt 89.3 kg
[~2025-04-17 09:18] MED LIST changes: +AMIO200T13 PO; -AMIO200T33 PO; -ATOR20TA50 PO; -PAR20T PO
[2025-04-17 09:20] VITALS: BP 123/84; PULSE 54; RESP 18; TEMP 97; O2SAT 98
[2025-04-17 09:53] LABS: Chloride 105 mmol/L (98-107); Potassium 4.1 mmol/L (3.5-5.1); Sodium 141 mmol/L (136-145)
[2025-04-17 09:54] LABS: Anion Gap 11 (5-15); Carbon Dioxide 25 mmol/L (20-31)
[2025-04-17 09:55] LABS: Calcium 10.2 mg/dL (8.7-10.4)
[2025-04-17 09:57] LABS: Hematocrit 40.4 % (36.0-46.0); Hemoglobin 13.4 g/dL (12.2-16.2); Mean Corpuscular Hemoglobin 28.3 pg (28.0-32.0); Mean Corpuscular Volume 85.5 fL (80.0-100.0); Nucleated Red Blood Cells % 0.1 %
--- NOTE | 2025-04-17 09:57 | ED.PDOC ---
GI ASSESSMENT HPI Comments 79 y/o F, with PMHx of A-Fib, CAD, CKF, DM, and HTN presents to the ED for CC of GI Bleed. Patient states, she has been having rectal bleeding d/t hemorrhoids [id number]. Patient reports, symptoms than worsened as of this morning (04/17/25) with her sanitary pad being full of blood. Patient comments, that she is currently on blood thinners (Xarelto) for her A-Fib. Patient denies weakness, faintness, dizziness, or fatigue. No other symptoms or modifying factors are present at this time. Chief Complaint: GI Bleed Time Seen by MD: 09:40 Reviewed Notes: Nurses Notes, Medications, Allergies Allergies: Coded Allergies: Penicillins (Verified Allergy, Severe, 10/26/21) Home Meds Active Scripts Amiodarone HCl (Amiodarone HCl) 200 Mg Tab, 200 MG PO BID for 30 Days, #60 TAB Prov:ZOIE GOODRICH MD 12/30/24 Metoprolol Succinate (Toprol Xl) 25 Mg Tab, 1 TAB PO DAILY for 30 Days, #30 TAB 1 Refill Prov:ZOIE GOODRICH MD 12/30/24 Sacubitril-Valsartan (Entresto 24-26 mg) 1 Tab Tab, 1 TAB PO BID, #90 TAB Prov:STEVE JENKINS MD 03/20/23 Rivaroxaban (Xarelto Tablet) 15 Mg Tb, 15 MG PO DAILY, #60 TAB Prov:STEVE JENKINS MD 03/20/23 Reported Medications Amlodipine Besylate (Amlodipine Besylate) 5 Mg Tab, 1 TAB PO DAILY for 90 Days, #90 12/27/24 Atorvastatin Calcium (ATORVASTATIN CALCIUM) 40 Mg Tab, 1 TAB PO DAILY for 100 Days, #100 12/27/24 Hydralazine Hcl (Hydralazine Hcl) 50 Mg Tab, 1 TAB PO TID for 30 Days, #90 12/27/24 Paroxetine Hydrochloride (Paroxetine Hydrochloride) 10 Mg Tab, 1.5 TAB PO DAILY for 100 Days, #150 12/27/24 Metformin Hydrochloride (Metformin Hcl) 850 Mg Tab, 1 TAB PO BID 10/26/21 Levothyroxine Sodium (Levothyroxine Sodium) 100 Mcg Tab, 1 TAB PO DAILY for 100 Days, #100 10/26/21 Tramadol Hcl (Tramadol Hcl) 50 Mg Tab, 1 TAB PO BIDPRN PRN for PAIN SCALE 1 THRU 6 10/26/21 Information Source: Patient Mode of Arrival: Ambulatory Timing: Weeks Duration: Since onset Prehospital treatment: None Vomitus: None Stool: Other (rectal bleeding) Severity: Moderate Recent: None Recent Hx of: None Pain Location: Suprapubic Modifying Factors: Nothing Associated sign and symptoms: Constipation, Abdominal Pain Past Medical History PAST MEDICAL HISTORY: AFIB, CAD, CKF, DM, HTN, Thyroid Surgical History: Cholecystectomy [employer] History: No Pertinent [employer] History Family History Family History: Family hx of DM Social History Smoker: Non-Smoker Alcohol: Occasionally Drugs: Denies Drug Use Lives In: Home Constitutional: denies: chills, diaphoresis, fatigue, fever, malaise, sweats, weakness, others EENTM: denies: blurred vision, double vision, ear bleeding, ear discharge, ear drainage, ear pain, ear ringing, eye pain, eye redness, hearing loss, mouth pain, mouth swelling, nasal discharge, nose bleeding, nose congestion, nose pain, photophobia, tearing, throat pain, throat swelling, voice changes, others Respiratory: denies: cough, hemoptysis, orthopnea, SOB at rest, shortness of breath, SOB with excertion, stridor, wheezing, others Cardiovascular: denies: chest pain, dizzy spells, diaphoresis, Dyspnea on exertion, edema, irregular heart beat, left arm pain, lightheadedness, palpitations, PND, syncope, others Gastrointestinal: reports: abdominal pain, rectal bleeding; denies: abdomen distended, blood streaked bowels, constipated, diarrhea, dysphagia, difficulty swallowing, hematemesis, melena, nausea, poor appetite, poor fluid intake, rectal pain, vomiting, others Genitourinary: denies: abnormal vagina bleeding, burning, dyspareunia, dysuria, flank pain, frequency, hematuria, incontinence, pain, , vagina d ischarge, urgency, others Neurological: denies: dizziness, fainting, headache, left sided numbness, left sided weakness, numbness, paresthesia, pre-existing deficit, right sided numbness, right sided weakness, seizure, speech problems, tingling, tremors, weakness, others Musculoskeletal: denies: back pain, gout, joint pain, joint swelling, muscle pain, muscle stiffness, neck pain, others Integumetry: denies: bruises, change in color, change in hair/nails, dryness, laceration, lesions, lumps, rash, wounds, others Allergic/Immunocompromised: denies: Difficulty Healing, Frequent Infections, Hives, Itching, others Hematologic/Lymphatic: denies: anemia, blood clots, easy bleeding, easy bruising, swollen glands, others Endocrine: denies: excessive hunger, excessive sweating, excessive thirst, excessive urination, flushing, intolerance to cold, intolerance to heat, unexplained weight gain, unexplained weight loss, others Psychiatric: denies: anxiety, bipolar disorder, depression, hopeless, panic disorder, schizophrenia, sleepless, suicidal, others All Other Systems: Reviewed and Negative Physical Exam General Appearance: Mild Distress HEENT: Pharynx Normal Neck: Normal Inspection Respiratory: No Respiratory Distress Cardiovascular: No Edema Breast Exam: Deferred Gastrointestinal: Non Tender Genitalia: Deferred Pelvic: Deferred Rectal: Deferred Extremities: Normal range of motion Neurologic: No Motor Deficits Cerebellar Function: NOT DONE Reflexes: NOT DONE Skin: Normal Color Lymphatic: NOT DONE Was a procedure done? Was a procedure done?: No GI differential Dx Differential Diagnosis: Constipation, GI hemorrhage, Inflammatory BD, Other (hemorrhoids) X-Ray, Labs, Meds, VS Vital Signs Date Time Temp Pulse Resp B/P (MAP) Pulse Ox O2 Delivery O2 Flow Rate FiO2 04/17/25 09:20 97.0 54 18 123/84 98 97.0 Lab Test 04/17/25 09:33 Range/Units White Blood Count 7.3 4.4-10.8 10^3/uL Red Blood Count 4.73 4.0-5.20 10^6/uL Hemoglobin 13.4 12.2-16.2 g/dL Hematocrit 40.4 36.0-46.0 % Mean Corpuscular Volume 85.5 80.0-100.0 fL Mean Corpuscular Hemoglobin 28.3 28.0-32.0 pg Mean Corpuscular Hemoglobin Concent 33.1 32.0-36.0 g/dL Red Cell Distribution Width 15.8 H 11.8-14.3 % Platelet Count 258 140-450 10^3/uL Mean Platelet Volume 8.9 6.9-10.8 fL Neutrophils (%) (Auto) 68.2 37.0-80.0 % Lymphocytes (%) (Auto) 14.7 10.0-50.0 % Monocytes (%) (Auto) 5.5 0.0-12.0 % Eosinophils (%) (Auto) 10.8 H 0.0-7.0 % Basophils (%) (Auto) 0.8 0.0-2.0 % Neutrophils # (Auto) 5.0 1.6-8.6 10 ^3/uL Lymphocytes # (Auto) 1.1 0.4-5.4 10 ^3/uL Monocytes # (Auto) 0.4 0-1.3 10 ^3/uL Eosinophils # (Auto) 0.8 0-0.8 10 ^3/uL Basophils # (Auto) 0.1 0-0.2 10 ^3/uL Nucleated Red Blood Cells 0.1 % Prothrombin Time 12.4 H 9.3-11.8 sec Prothrombin Time INR 1.19 H 0.9-1.15 Activated Partial Thromboplast Time 33.4 24.5-34.5 SEC Sodium Level 141 136-145 mmol/L Potassium Level 4.1 3.5-5.1 mmol/L Chloride Level 105 98-107 mmol/L Carbon Dioxide Level 25 20-31 mmol/L Anion Gap 11 5-15 Blood Urea Nitrogen 22 9-23 mg/dL Creatinine 1.80 H 0.550-1.02 mg/dL Glomerular Filtration Rate Calc 28 >90 mL/min BUN/Creatinine Ratio 12.2 10.0-20.0 Serum Glucose 131 H 74-106 mg/dL Calcium Level 10.2 8.7-10.4 mg/dL Time of 1ST Reevaluation: 10:10 Reevaluation 1ST: Unchanged Patient Education/Counseling: Diagnosis, Treatment Family Education/Counseling: No Family Present SEPSIS Sepsis Screen Date sepsis recognized/suspect: Apr 17, 2025 Time Sepsis recognized/suspect: 920 Recent Procedure: No On Antibiotic Therapy: No Respiratory Rate >20: No Heart Rate >90: No Temp<36 C (96.8 F) or >38.3 C: No SBP <90 or MAP <65 mmHG: No New Acute Mental Status Change: No Is the patient on CPAP, BIPAP,: No Physician Orders Ct Ab Pel Wo Con-No Oral Or Iv (04/17/25 11:15) Vital Signs Date Time Temp Pulse Resp B/P (MAP) Pulse Ox O2 Delivery O2 Flow Rate FiO2 04/17/25 09:20 97.0 54 18 123/84 98 97.0 Laboratory Tests Test 04/17/25 09:33 White Blood Count 7.3 10^3/uL (4.4-10.8) Departure 1 Departure Time of Disposition: 05:08 (Patient presented with abdominal pain that was concerning for possible appendicits, gastritis, cholecystitis, colitis, gastroenteritis, sbo, or orther possible surgical emergency. Data: 1. I ordered and reviewed the result of at least 3 labs including a CBC, BMP, and Urinalysis. 2. I independently interpreted the following tests: CT Abdomen and Pelvis is concerning for benign abdomen .Risk:This patient has a high risk of morbidity due to further diagnostic testing or treatment and may suffer from an acute abdominal process disorder. Workup reveals concern for GI bleed and patient should be admitted for further workup. and possible expert consultation. ) Impression: Primary Impression: Bright red blood per rectum Additional Impression: Acute abdominal pain Disposition: ADMITTED INPATIENT Admit to: Med Surg Condition: Guarded Critical Care Note Critical Care Time?: No Stability Stability form required: No Heart Score Heart Score: Heart Score Response (Comments) Value History N/A 0 EKG N/A 0 Age N/A 0 Risk Factors N/A 0 Troponin N/A 0 Total 0 I personally scribed for ELIJAH HUNT MD ([email or web address]) on 04/17/25 at 09:57. Electronically submitted by Leonor Blake [email or web address]). ELIJAH HUNT MD Apr 17, 2025 09:57
[2025-04-17 10:00] LABS: BUN/Creatinine Ratio 12.2 (10.0-20.0); Blood Urea Nitrogen 22 mg/dL (9-23); Glucose 131 mg/dL (74-106)
[2025-04-17 10:23] LABS: INR 1.19 (0.9-1.15); Partial Thromboplastin Time 33.4 SEC (24.5-34.5); Prothrombin Time 12.4 sec (9.3-11.8)
--- NOTE | 2025-04-17 11:55 | DVH ---
Exam: CT CT AB PEL WO CON-NO ORAL OR IV History: abdominal pain Comparison Study: US PELVIC TRANSVAGINAL ONLY on DOS: 08/20/24, US PELVIC TRANSVAGINAL ONLY on DOS: , CT ABD PELVIS WO CONTRAST on DOS: 10/25/21 Technique: Multidetector spiral CT of the abdomen was performed from lung bases to pubic symphysis. I maging was performed without IV contrast. Axial, coronal and sagittal multiplanar reformats were obta ined from the axial data set by the technologist. Radiation dose : 1. Abdomen/Pelvis: CTDIvol 17.42 mGy, DLP 883.37 mGy*cm. Findings: Evaluation of solid organs is limited due to lack of intravenous contrast use. Lung Bases: No acute or significant lung base finding. Normal heart size. No pleural or pericardial effusion. Liver: The liver is normal in size. No focal lesions. Gallbladder and biliary Tree: Gallbladder is surgically absent. Spleen: Unremarkable Pancreas: The pancreas is grossly normal in appearance. Adrenal Glands: Unremarkable Kidneys: Kidneys are grossly normal without calculi or hydronephrosis. Bladder: Grossly unremarkable for degree of distention. Bowel: The stomach is grossly normal in appearance. Small bowel and colon are normal in caliber and d istribution. Normal appendix is visualized in the right lower quadrant without findings of appendicit is. Colonic diverticulosis. Ascites: Absent Lymphadenopathy: No mesenteric, retroperitoneal or periportal lymphadenopathy. Abdominal wall and Mesentery: Unremarkable. Vasculature: The visualized abdominal aorta is normal in size and caliber. Evaluation of abdominal a nd pelvic vessels is limited due to lack of intravenous contrast. Pelvic Organs: Unremarkable Musculoskeletal: No aggressive focal bony lesions, acute fractures or dislocation. IMPRESSION: No acute abdominal or pelvic findings. Radiation optimization: All CT scans at this facility use at least one of these dose optimization yanira hniques: automated exposure control mA and/or kV adjustment per patient size (includes targeted exam s where dose is matched to clinical indication) or iterative reconstruction.
--- NOTE | 2025-04-17 17:49 | DVHINCON2 ---
Date Seen: Apr 17, 2025 Referring Phys[address] ER physician Dr. Shaun Lovett. Reason for Consultation Bright red blood per rectum. History of Present Illness 79-year-old female with a known history of chronic AFib, CAD, diabetes mellitus type 2, hypertension initially presented to the hospital with a bright red blood per rectum. Patient has stated that disorder and off for last two weeks but she does have known history of hemorrhoids. Patient's hemoglobin was 14. CT abdomen and pelvis was done which shows no evidence of any acute pathology. As patient's hemoglobin is stable and she is requesting to go home patient can be discharged with a close follow up as an outpatient with the GI for outpatient colonoscopy. Patient is currently understand verbalized understanding and agreeable to plan. Past Medical History Hypertension Diabetes type 2 Paroxysmal AFib currently on Xarelto CKD. Past Surgical History None significant. Family History: Congenital anomaly G8 MOTHER G8 FATHER, Onset:Unknown Diabetes mellitus Allergies: Coded Allergies: Penicillins (Verified Allergy, Severe, 10/26/21) Home Meds Active Scripts Amiodarone HCl (Amiodarone HCl) 200 Mg Tab, 200 MG PO BID for 30 Days, #60 TAB Prov:ZOIE GOODRICH MD 12/30/24 Metoprolol Succinate (Toprol Xl) 25 Mg Tab, 1 TAB PO DAILY for 30 Days, #30 TAB 1 Refill Prov:ZOIE GOODRICH MD 12/30/24 Sacubitril-Valsartan (Entresto 24-26 mg) 1 Tab Tab, 1 TAB PO BID, #90 TAB Prov:STEVE JENKINS MD 03/20/23 Rivaroxaban (Xarelto Tablet) 15 Mg Tb, 15 MG PO DAILY, #60 TAB Prov:STEVE JENKINS MD 03/20/23 Reported Medications Amlodipine Besylate (Amlodipine Besylate) 5 Mg Tab, 1 TAB PO DAILY for 90 Days, #90 12/27/24 Atorvastatin Calcium (ATORVASTATIN CALCIUM) 40 Mg Tab, 1 TAB PO DAILY for 100 Days, #100 12/27/24 Hydralazine Hcl (Hydralazine Hcl) 50 Mg Tab, 1 TAB PO TID for 30 Days, #90 12/27/24 Paroxetine Hydrochloride (Paroxetine Hydrochloride) 10 Mg Tab, 1.5 TAB PO DAILY for 100 Days, #150 12/27/24 Metformin Hydrochloride (Metformin Hcl) 850 Mg Tab, 1 TAB PO BID 10/26/21 Levothyroxine Sodium (Levothyroxine Sodium) 100 Mcg Tab, 1 TAB PO DAILY for 100 Days, #100 10/26/21 Tramadol Hcl (Tramadol Hcl) 50 Mg Tab, 1 TAB PO BIDPRN PRN for PAIN SCALE 1 THRU 6 10/26/21 Review of Systems Twelve review of system are negative besides mentioned above. 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 no motor deficit Labs/Diagnostic Data Labs Test 04/17/25 09:33 Range/Units White Blood Count 7.3 4.4-10.8 10^3/uL Red Blood Count 4.73 4.0-5.20 10^6/uL Hemoglobin 13.4 12.2-16.2 g/dL Hematocrit 40.4 36.0-46.0 % Mean Corpuscular Volume 85.5 80.0-100.0 fL Mean Corpuscular Hemoglobin 28.3 28.0-32.0 pg Mean Corpuscular Hemoglobin Concent 33.1 32.0-36.0 g/dL Red Cell Distribution Width 15.8 H 11.8-14.3 % Platelet Count 258 140-450 10^3/uL Mean Platelet Volume 8.9 6.9-10.8 fL Neutrophils (%) (Auto) 68.2 37.0-80.0 % Lymphocytes (%) (Auto) 14.7 10.0-50.0 % Monocytes (%) (Auto) 5.5 0.0-12.0 % Eosinophils (%) (Auto) 10.8 H 0.0-7.0 % Basophils (%) (Auto) 0.8 0.0-2.0 % Neutrophils # (Auto) 5.0 1.6-8.6 10 ^3/uL Lymphocytes # (Auto) 1.1 0.4-5.4 10 ^3/uL Monocytes # (Auto) 0.4 0-1.3 10 ^3/uL Eosinophils # (Auto) 0.8 0-0.8 10 ^3/uL Basophils # (Auto) 0.1 0-0.2 10 ^3/uL Nucleated Red Blood Cells 0.1 % Prothrombin Time 12.4 H 9.3-11.8 sec Prothrombin Time INR 1.19 H 0.9-1.15 Activated Partial Thromboplast Time 33.4 24.5-34.5 SEC Sodium Level 141 136-145 mmol/L Potassium Level 4.1 3.5-5.1 mmol/L Chloride Level 105 98-107 mmol/L Carbon Dioxide Level 25 20-31 mmol/L Anion Gap 11 5-15 Blood Urea Nitrogen 22 9-23 mg/dL Creatinine 1.80 H 0.550-1.02 mg/dL Glomerular Filtration Rate Calc 28 >90 mL/min BUN/Creatinine Ratio 12.2 10.0-20.0 Serum Glucose 131 H 74-106 mg/dL Calcium Level 10.2 8.7-10.4 mg/dL Assessment 79-year-old female with a known history of hypertension, diabetes mellitus type 2, chronic AFib currently on Xarelto, CKD presented to the hospital with a bright red blood per rectum. Patient's hemoglobin is 14 hematocrit is more than 30. Patient's CT abdomen and pelvis was done which shows no acute pathology. Patient probably has a hemorrhoid with a needs outpatient follow up with the GI. Patient is currently understand verbalized understanding and agreeable to plan. Problems(with codes): (1) Bright red blood per rectum Plan discussed with: Patient Date of Service: Apr 17, 2025 Billing Provider: ZOIE GOODRICH MD Common Visit Codes: NOT BILLABLE ZOIE GOODRICH MD Apr 17, 2025 17:49
== END 2025-04-17 16:38 | disposition left against medical advice (07) ==
LOC: ER 09:18
DX: K62.5 Hemorrhage of anus and rectum (principal); R10.84 Generalized abdominal pain; F10.90 Alcohol use, unspecified, uncomplicated; I25.10 Atherosclerotic heart disease of native coronary artery without angina pectoris; I48.91 Unspecified atrial fibrillation; I12.9 Hypertensive chronic kidney disease with stage 1 through stage 4 chronic kidney disease, or unspecified chronic kidney disease; E11.22 Type 2 diabetes mellitus with diabetic chronic kidney disease; N18.9 Chronic kidney disease, unspecified; Z79.890 Hormone replacement therapy; Z79.899 Other long term (current) drug therapy; Z90.49 Acquired absence of other specified parts of digestive tract; Z88.0 Allergy status to penicillin; Z79.84 Long term (current) use of oral hypoglycemic drugs; Z79.01 Long term (current) use of anticoagulants; Y90.9 Presence of alcohol in blood, level not specified
CPT/HCPCS: 36415; 74176; 80048; 85025; 85610; 85730; 86850; 86900; 86901

== ENCOUNTER 2025-06-16 08:41 | Day surgery (SDC) | payer OTHER ==
[2025-06-16] VITALS (8 sets, daily range): BP systolic 109–151; BP diastolic 53–72; PULSE 44–62; RESP 11–17; TEMP 97.2; O2SAT 92–98
[~2025-06-16] VITALS: Ht 162.6 cm; Wt 84.8 kg
[~2025-06-16 08:41] MED LIST changes: -AMIO200T13 PO; -AMLO1TAB22 PO; +ASPI-543 PO; +CHOL20007 OR; +HYDR25TA4 PO; +LOSA-534 PO; -METF-371 PO; -SACU1TAB PO; +TIRZ2.5I SC; -TRAM50TA2 PO
[2025-06-16] MEDS ORDERED: IODIXANOL 320MG/ML 100ML BTL IV ONE (10:32)
[2025-06-16] MEDS ORDERED: VERAPAMIL 2.5MG/ML INJ 2ML VIAL IV ONE (10:51)
[2025-06-16] MEDS ORDERED: fentaNYL CITRATE 100 MCG/2 ML VL ONE (10:51)
[2025-06-16] MEDS ORDERED: MIDAZOLAM HCL 2MG/2ML 2ml VIAL (1mg/ml) ONE (10:51)
[2025-06-16] MEDS ORDERED: LIDOCAINE 2%HCL (LOCAL ANESTH.) INJ 20ML MDV ONE (10:51)
[2025-06-16] MEDS ORDERED: HEPARIN SODIUM (PORCINE) 5000 UNITS/ML 1ML VIAL ONE (11:08)
--- NOTE | 2025-06-16 11:14 | DVHOP2 ---
Operative Report Operative Report CARDIAC [facility] PROCEDURE REPORT [place], [place] Date of Service: 06/16/25 Pipefitter Helper: Kaiser Tanner MD PROCEDURES PERFORMED: Coronary angiogram, left heart catheterization, conscious sedation administration and supervision, less than 15 minutes; fluoroscopy use and interpretation. PREOPERATIVE DIAGNOSES: Abnormal stress test with CCS class 3 angina, POSTOP DIAGNOSIS: mild cad DESCRIPTION OF PROCEDURE: The patient or appropriate family signed informed consent understanding the risks, benefits and alternatives of the procedure, they wished to proceed. The patient was brought to the cardiac helper animal laboratory [place]. The patient was prepped in a sterile fashion. Sedation was used per cardiac cath protocol. I administered 2 mL of 2% lidocaine to the right wrist. With an antegrade front wall puncture. I cannulated the right radial artery and placed a 6-[place] slender. Next, an intra-arterial spasmolytic was administered. Next, a - 6French [place] catheter a and were used for coronary angiogram and LVEDP measurement and pressure pullback. At the completion of procedure, all guides and wires were removed, and there were no immediate complications. 5000 U of IV heparin given. FINDINGS: RCA: Moderate vessel off the right sinus of Valsalva, there is no severe flow limiting stenosis. calcific vessel with very tortuos vessel anatomy. no severe stenosis LEFT MAIN: Moderate size left main, it bifurcates into LAD and circumflex. mild plaque. calcific vessel CIRCUMFLEX: Moderate caliber vessel coming off the left main with no flow limiting stenosis. heavily calcified with diffuse luminal irregularities. very tortous vessel suggestive of HTNsive heart disease LAD: LAD is a moderate caliber vessel coming of the left main. heavily calcified with diffuse luminal irregularities. very tortous vessel suggestive of HTNsive heart disease LVEDP of 12 mmhg CONCLUSIONS: 1. mild cad PLAN: Aggressive risk factor modification and medical management for the patient. afib tx--bradycardia, cont to monitor pt KAISER TANNER MD Jun 16, 2025 11:14
== END 2025-06-16 14:05 | disposition home or self-care (01) ==
LOC: CATH 08:41
PROVIDERS: ATTEND Internal Medicine
DX: R94.39 Abnormal result of other cardiovascular function study (principal); I25.118 Atherosclerotic heart disease of native coronary artery with other forms of angina pectoris; I25.84 Coronary atherosclerosis due to calcified coronary lesion; I48.91 Unspecified atrial fibrillation; I50.9 Heart failure, unspecified; F41.8 Other specified anxiety disorders; Z79.82 Long term (current) use of aspirin; Z79.890 Hormone replacement therapy; Z79.899 Other long term (current) drug therapy; Z87.891 Personal history of nicotine dependence; Z88.0 Allergy status to penicillin; Z83.3 Family history of diabetes mellitus; Z82.2 Family history of deafness and hearing loss
CPT/HCPCS: 93458; C1894; J1644; J2250; J3010; J7030; Q9967; 99152